=== PATIENT | male | born 2000 | race Two or more races ===

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

== ENCOUNTER 2018-02-07 23:02 | Emergency (ER) | payer MEDICAID ==
--- NOTE | 2018-02-07 23:05 | ER Report ---
History and Physical Time Seen By MD: 23:04 HPI/ROS CHIEF COMPLAINT: feeding tube not working HISTORY OF PRESENT ILLNESS: This is a 17 year old male. He had his Keppra given through the feeding tube, but now not working. Sent by ambulance for further evaluation. Home Meds Reported Medications Sertraline Hcl (SERTRALINE HCL) 25 Mg Tablet, 1 TAB FT QDAY, TAB 02/08/18 Quetiapine Fumarate (QUETIAPINE FUMARATE) 25 Mg Tablet, 12.5 MG FT QDAY 02/08/18 Quetiapine Fumarate (Quetiapine Fumarate ER) 50 Mg Tab.er.24h, 12.2 MG 02/08/18 Potassium Chloride (POTASSIUM CHLORIDE) 20 Meq Packet, 20 MEQ FT QDAY, PACKET 02/08/18 Oxycodone/Acetaminophen (OXYCODONE/ACETAMINOPHEN 5MG/325 MG) 5 Mg/325 Mg Tab, 1 TAB FT Q8H 02/08/18 Eyelid Cleanser Combination #5 (OCUSOFT LID SCRUB) 1 Each Med..pad, 1 EACH TP BID 02/08/18 Hyoscyamine Sulfate (LEVSIN) 0.125 Mg Tablet, 0.125 MG FT BID 02/08/18 Clonazepam (KLONOPIN) 1 Mg Tablet, 1 MG FT BID, #7 TAB 02/08/18 Glycopyrrolate (GLYCOPYRROLATE) 2 Mg Tablet, 2 MG FT TID 02/08/18 Levetiracetam (LEVETIRACETAM) 500 Mg Tablet, 500 MG FT BID 02/07/18 Reviewed Nurses Notes: Yes Constitutional Vital Sign - Last 24 Hours 02/07/18 23:06 Temp 99.1 Pulse 76 Resp 14 B/P (MAP) 98/54 Pulse Ox 95 Physical Exam Abdomen is soft, non-tender. Feeding tube site normal in appearance. Feeding tube flushes easily with some CocaCola and then flushed with sterile water. No problems noted. Medical Decision Making ED Course/Re-evaluation ED Course feeding tube flushes normally. Okay to discharge back to care center. Decision to Disposition Date: Feb 07, 2018 Decision to Disposition Time: 23:10 Depart Departure Latest Vital Signs Vital Signs Date Time Temp Pulse Resp B/P (MAP) Pulse Ox O2 Delivery O2 Flow Rate FiO2 02/07/18 23:06 99.1 76 14 98/54 95 Impression: Primary Impression: Feeding tube dysfunction Condition: Improved Disposition: HOME OR SELF-CARE Additional Instructions: No changes at this time. Problem Qualifiers Primary Impression: Feeding tube dysfunction Encounter type: initial encounter Qualified Codes: T85.598A - Other mechanical complication of other gastrointestinal prosthetic devices, implants and grafts, initial encounter VINCE AMAYA MD Feb 07, 2018 23:05
[2018-02-07 23:06] VITALS: BP 98/54
[2018-02-07] MEDS ORDERED: LEVE500T73 FT (23:55)
[2018-02-08] MEDS ORDERED: SERT25TA90 FT (00:06)
[2018-02-08] MEDS ORDERED: QUET25TA FT (00:06)
[2018-02-08] MEDS ORDERED: CLON-1 FT (00:06)
[2018-02-08] MEDS ORDERED: HYOS-49 FT (00:06)
[2018-02-08] MEDS ORDERED: QUET50TA79 (00:06)
[2018-02-08] MEDS ORDERED: GLYC2TAB15 FT (00:06)
[2018-02-08] MEDS ORDERED: POTA20PA25 FT (00:06)
[2018-02-08] MEDS ORDERED: PER FT (00:06)
[2018-02-08] MEDS ORDERED: EYEL1MED TP (00:06)
== END 2018-02-07 23:30 | disposition home or self-care (01) ==
LOC: ER 23:09
DX: K94.23 Gastrostomy malfunction (principal)
CPT/HCPCS: 99283

== ENCOUNTER → 2018-02-07 | Outpatient (CLI) | payer MEDICAID ==
[~2018-02-07] MED LIST changes: -BARIUM SULFATE 148 GM POWDER ONE; -BARIUM SULFATE 240 ML ORAL SUS (NECTAR) ONE; +CLON-1 FT; +EYEL1MED TP; +GLYC2TAB15 FT; +HYOS-49 FT; +LEVE500T73 FT; +PER FT; +POTA20PA25 FT; +QUET25TA FT; +QUET50TA79; +SERT25TA90 FT
== END ==
LOC: AMB 23:47
PROVIDERS: ATTEND Nurse Practitioner
DX: Z93.1 Gastrostomy status (principal); R63.3 Feeding difficulties; Z74.01 Bed confinement status
CPT/HCPCS: A0425; A0428

== ENCOUNTER → 2018-02-07 | Outpatient (CLI) | payer MEDICAID | LOC: AMB 22:44 | PROVIDERS: ATTEND Nurse Practitioner | DX: Z93.1 Gastrostomy status (principal); R63.3 Feeding difficulties; Z74.01 Bed confinement status | CPT/HCPCS: A0425; A0429 ==

== ENCOUNTER → 2018-02-11 | Outpatient (REF) | payer MEDICAID | LOC: ZZLCC 17:52 | PROVIDERS: ATTEND Family Medicine | DX: S06.9X9D Unspecified intracranial injury with loss of consciousness of unspecified duration, subsequent encounter (principal); I63.9 Cerebral infarction, unspecified; R53.1 Weakness | CPT/HCPCS: 82040; 82247; 82310; 82374; 82435; 82565; 82947; 84075; 84132; 84155; 84295; 84450; 84460; 84520; 85027 ==

== ENCOUNTER 2018-02-18 08:05 | Emergency (ER) | payer MEDICAID ==
[2018-02-18] MEDS ORDERED: NS(*) 0.9% 1000 ML BAG 1,000 ML IV ONE (08:11)
[2018-02-18] MEDS ORDERED: ONDANSETRON 4 MG/2 ML VIAL IVP ONE (08:15)
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
[2018-02-18] MEDS ORDERED: DIATRIZOATE MEGL/DIATRIZOA SOD 367 MG/ML SOLN ONE (08:29)
[2018-02-18 09:01] LABS: PLATELET COUNT, AUTOMATED 118 K/uL (150-450)
[2018-02-18 09:10] LABS: INR 1.05
--- NOTE | 2018-02-18 09:48 | RADIOLOGY IMAGING REPORT ---
FACILITY: [facility] - [place] PATIENT NAME: Todd Beltran : 2000 MR: [id number] V: [id number] EXAM DATE: ORDERING PHYSICIAN: SHAUNA JOE TECHNOLOGIST: Location: [facility] Patient: Todd Beltran : 2000 Visit/Account:[id number] Date of Sevice: 02/18/2018 Exam type: FLUORO NG TUBE PLACEMENT History: Gastrografin through G-tube for confirmation of placement Comparison: None. Findings: 60 mL of a Gastrografin suspension was instilled through the patient's gastrostomy tube gastrostomy t ube with appears to be along the greater curvature of the gastric body. The Gastrografin entered the stomach and passed into the duodenum without evidence of obstruction. The balloon from the G-tube a ppears to be tethering the greater curvature inferiorly. The fluoroscopy dose area product was 147.7 2 micro-Jarvis per meter squared IMPRESSION: 1. The G-tube appears to be located along the greater curvature the stomach which is tethering the g reater curvature inferiorly although there is no extraluminal extravasation of the Gastrografin which flowed freely into the stomach and proximal duodenum Report Dictated By: Juana Biswas MD at 02/18/2018 9:40 AM Report E-Signed By: Juana Biswas MD at 02/18/2018 9:44 AM WSN:[email or web address]
[2018-02-18 10:30] VITALS: BP 89/42
== END 2018-02-18 11:01 | disposition home or self-care (01) ==
LOC: ER 08:14
DX: K94.23 Gastrostomy malfunction (principal)
CPT/HCPCS: 49465; 83690; 85025; 85610; 85730; 96361; 96374; 99284; J2405; J7030; 74340; 82040; 82247; 82310; 82374; 82435; 82565; 82947; 84075; 84132; 84155; 84295; 84450; 84460; 84520

== ENCOUNTER → 2018-02-18 | Outpatient (CLI) | payer MEDICAID | LOC: AMB 10:58 | PROVIDERS: ATTEND Nurse Practitioner | DX: R53.1 Weakness (principal); S06.309A Unspecified focal traumatic brain injury with loss of consciousness of unspecified duration, initial encounter; V49.9XXA Car occupant (driver) (passenger) injured in unspecified traffic accident, initial encounter; Z74.01 Bed confinement status | CPT/HCPCS: A0425; A0428 ==

== ENCOUNTER → 2018-02-18 | Outpatient (CLI) | payer MEDICAID | LOC: AMB 07:50 | PROVIDERS: ATTEND Nurse Practitioner | DX: R50.9 Fever, unspecified (principal); R11.10 Vomiting, unspecified; Z74.01 Bed confinement status; S06.309A Unspecified focal traumatic brain injury with loss of consciousness of unspecified duration, initial encounter; V49.60XA Unspecified car occupant injured in collision with unspecified motor vehicles in traffic accident, initial encounter | CPT/HCPCS: A0425; A0429 ==

== ENCOUNTER 2018-03-11 09:15 | Inpatient (IN) | payer MEDICAID ==
[~2018-03-11 09:15] MED LIST changes: -AMOX-559 FT; -BACL-51 FT; -BISA10SU62 RC; -DANT25CA PO; -ONDA4TAB PO; -POLY17PO25 FT
[2018-03-11] MEDS ORDERED: BISA10SU62 RC (09:34)
[2018-03-11] MEDS ORDERED: POLY17PO25 FT (09:34)
[2018-03-11] MEDS ORDERED: DANT25CA PO (09:34)
[2018-03-11] MEDS ORDERED: BACL-51 FT (09:34)
[2018-03-11] MEDS ORDERED: NS(*) 0.9% 1000 ML BAG 1,000 ML IV ONE (09:35)
[2018-03-11] MEDS ORDERED: ONDANSETRON 4 MG/2 ML VIAL IVP ONE (09:35)
[2018-03-11 09:42] LABS: PLATELET COUNT, AUTOMATED 156 K/uL (150-450)
[2018-03-11] MEDS ORDERED: DIATRIZOATE MEGL/DIATRIZOA SOD 367 MG/ML SOLN ONE (09:44)
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
--- NOTE | 2018-03-11 10:56 | RADIOLOGY IMAGING REPORT ---
[place]AC[place] [facility] [place] NAME: Todd Beltran : 2000 MR: [id number] V: [id number] EXAM DATE: [id number] ORDERING PHYSICIAN: SHAUNA JOE TECHNOLOGIST: Location: [facility] - [place], [place] Patient: Todd Beltran : 2000 Visit/Account:[id number] Date of Sevice: 03/11/2018 ABDOMEN/PELVIS W/O CONTRAST HISTORY: Abdominal pain. Evaluate for gastric outlet obstruction TECHNIQUE: Axial images were obtained through the abdomen and pelvis without intravenous contrast . Dilute Gastrografin administered prior to the exam. One of the following dose optimization technique s was utilized in the performance of this exam: automated exposure control; adjustment of the mA and/ or kv according to patient size; or use of iterative reconstruction technique. Specific details can b e referenced in the facility's radiology CT exam operational policy. CONTRAST: None COMPARISON: None. FINDINGS: Visualized lung bases: Bilateral perihilar groundglass-reticular opacities. Hepatobiliary: Negative. Spleen: Negative. Adrenals: Negative. Pancreas: Negative. Kidneys/ureters/bladder: Negative. Bowel/peritoneum/mesentery: Percutaneous gastrostomy tube. Dilute Gastrografin fills the stomach wi th a small amount of contrast seen within the duodenum and proximal jejunum. No evidence of small paris wel obstruction. No free air. No contrast extravasation. Large amount of stool within the rectosig moid colon with a rectal stool ball measuring 9.7 x 9.1 x 8.8 cm. Vessels: Negative. Lymph nodes: Negative. Pelvic genitourinary: Negative. Bones/body wall: Negative. Other findings: None significant IMPRESSION: 1. Dilute Gastrografin within the stomach with a small amount of contrast seen within duodenum and j ejunum. No free air or contrast extravasation. 2. Large amount of stool within the rectosigmoid colon without obstructive features. 3. Moderate bilateral perihilar groundglass-reticular opacities which may be infectious/inflammatory or aspiration. Report Dictated By: Matthew Yarbrough MD at 03/11/2018 10:44 AM Report E-Signed By: Matthew Yarbrough MD at 03/11/2018 10:51 AM WSN:[id number]
[2018-03-11] MEDS ORDERED: LEVOFLOXACIN/D5W*500 MG/100 ML 100 ML IVPB ONE (11:00)
--- NOTE | 2018-03-11 11:38 | RADIOLOGY IMAGING REPORT ---
FACILITY: [facility] - [place] PATIENT NAME: Todd Beltran : 2000 MR: [id number] V: [id number] EXAM DATE: ORDERING PHYSICIAN: SHAUNA JOE TECHNOLOGIST: Location: [facility] - [place] Patient: Todd Beltran : 2000 Visit/Account:[id number] Date of Sevice: 03/11/2018 CHEST W/O CONTRAST HISTORY: aspiration TECHNIQUE: CT chest without intravenous contrast. One of the following dose optimization techniques was utilized in the performance of this exam: Autom ated exposure control; adjustment of the mA and/or kV according to the patient's size; or use of an i terative reconstruction technique. Specific details can be referenced in the facility's radiology C T exam operational policy. CONTRAST: None. COMPARISON: None. FINDINGS: Heart/vessels: Note is made of apparent common carotid bypass grafts which are not well assessed wit hout IV contrast. Otherwise negative. Mediastinum: Negative. Lymph nodes: Borderline prominent nonspecific right paratracheal lymph node measuring up to 9 mm in short axis. No pathologically enlarged. Lungs/pleura: Extensive nodular groundglass opacities throughout the lungs, right greater than left. There is a small right tracheal diverticulum.. Cannot accurately assess for small pulmonary micronod ules secondary to respiratory motion artifact. Visualized upper abdomen: Negative. Bones/soft tissues: Negative. IMPRESSION: 1. Extensive nodular groundglass opacities throughout the lungs, right greater than left, likely infe ctious/inflammatory in etiology. 2. Additional incidental/chronic findings, as above. Report Dictated By: Florentino No MD at 03/11/2018 11:31 AM Report E-Signed By: Florentino No MD at 03/11/2018 11:35 AM WSN:[id number]
[2018-03-11 12:28] VITALS: BP 95/52
[2018-03-11] MEDS ORDERED: NS(*) 0.9% 1000 ML BAG 1,000 ML IV PRN ×2 (12:45→12:50)
[2018-03-11] MEDS ORDERED: ONDANSETRON 4 MG/2 ML VIAL IVP PRN (12:45)
[2018-03-11] MEDS ORDERED: PROMETHAZINE 25 MG/ML 1 ML AMP IVP PRN (12:45)
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
[2018-03-11] MEDS: AMPICILLIN/SULBACT (*) 3 GM VL 3 GM in NS(*) 0.9% 100 ML BAG 100 ML IVPB SCH ×2 (14:02→20:18)
[2018-03-11 20:20] VITALS: BP 101/55
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
[2018-03-11] MEDS: levETIRAcetam(*)500 MG/5 ML VI 500 MG in NS(*) 0.9% 100 ML BAG 100 ML IV SCH (21:29)
[2018-03-11 22:28] VITALS: BP 97/67
[2018-03-11] MEDS: NS(*) 0.9% 1000 ML BAG 1,000 ML IV PRN (23:54)
[2018-03-12] MEDS: AMPICILLIN/SULBACT (*) 3 GM VL 3 GM in NS(*) 0.9% 100 ML BAG 100 ML IVPB SCH ×4 (02:21→21:21)
[2018-03-12 02:27] VITALS: BP 111/52
[2018-03-12 05:56] LABS: PLATELET COUNT, AUTOMATED 104 K/uL (150-450)
[2018-03-12 07:35] VITALS: BP 83/45
[2018-03-12] MEDS: levETIRAcetam(*)500 MG/5 ML VI 500 MG in NS(*) 0.9% 100 ML BAG 100 ML IV SCH (09:25)
[2018-03-12] MEDS ORDERED: ACETAMINOPHEN 160 MG/5 ML UDC FT PRN (10:10)
[2018-03-12] MEDS: NS(*) 0.9% 1000 ML BAG 1,000 ML IV PRN ×2 (10:53→16:38)
[2018-03-12] MEDS ORDERED: ONDA4TAB PO (12:01)
[2018-03-12] MEDS ORDERED: HYOSCYAMINE 0.125 MG/ML FT SCH (12:25)
[2018-03-12] MEDS ORDERED: BISACODYL 10 MG SUPP PR PRN (12:25)
[2018-03-12] MEDS: POLYETHYLENE GLYCOL 17 GM PKT FT SCH (12:53)
[2018-03-12] MEDS: SERTRALINE HCL 50 MG TAB FT SCH (12:53)
[2018-03-12] MEDS: clonazePAM 1 MG TAB FT SCH ×2 (12:53→21:23)
[2018-03-12] MEDS: BACLOFEN 10 MG TAB FT SCH ×3 (12:53→21:23)
[2018-03-12] MEDS: HYOSCYAMINE 0.125 MG/ML FT SCH ×2 (12:55→21:24)
[2018-03-12 12:57] VITALS: BP 97/53
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
[2018-03-12 20:05] VITALS: BP 103/66
[2018-03-12] MEDS: levETIRAcetam 500 MG TAB FT SCH (21:23)
[2018-03-12] MEDS: QUEtiapine FUM 25 MG TAB FT SCH (21:23)
[2018-03-13 00:30] VITALS: BP 91/50
[2018-03-13] MEDS: NS(*) 0.9% 1000 ML BAG 1,000 ML IV PRN ×2 (01:25→10:54)
[2018-03-13] MEDS: AMPICILLIN/SULBACT (*) 3 GM VL 3 GM in NS(*) 0.9% 100 ML BAG 100 ML IVPB SCH ×4 (01:43→20:39)
[2018-03-13] MEDS ORDERED: MORPHINE 2 MG/ML SYR IVP PRN (04:30)
[2018-03-13] MEDS ORDERED: ACETAMINOPHEN(*)1000 MG/100 ML 100 ML IVPB PRN (04:30)
[2018-03-13 07:02] VITALS: BP 106/72
--- NOTE | 2018-03-13 09:03 | Miscellaneous Provider Note ---
Miscellaneous Provider Note Note Patient's feeding tube is occluded and cannot be used for feedings or even flushed. I swapped it out and placed a 20 [place] balloon tip feeding tube. He tolerated without problems. Tube feedings can be resumed at hospitalist discretion. NITHIN ABARCA MD Mar 13, 2018 09:03
[2018-03-13] MEDS: SERTRALINE HCL 50 MG TAB FT SCH (09:25)
[2018-03-13] MEDS: BACLOFEN 10 MG TAB FT SCH ×4 (09:25→20:39)
[2018-03-13] MEDS: clonazePAM 1 MG TAB FT SCH ×2 (09:25→20:39)
[2018-03-13] MEDS: levETIRAcetam 500 MG TAB FT SCH ×2 (09:25→20:40)
[2018-03-13] MEDS: HYOSCYAMINE 0.125 MG/ML FT SCH ×2 (09:26→20:40)
[2018-03-13] MEDS: POLYETHYLENE GLYCOL 17 GM PKT FT SCH (09:26)
[2018-03-13 10:56] VITALS: BP 85/52
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
[2018-03-13] MEDS: ENOXAPARIN 40 MG/0.4ML SYR SC SCH (14:13)
[2018-03-13] MEDS: ACETAMINOPHEN 160 MG/5 ML UDC FT PRN (14:24)
[2018-03-13] MEDS: MORPHINE 2 MG/ML SYR IVP PRN ×3 (15:54→22:51)
[2018-03-13 19:42] VITALS: BP 110/78
[2018-03-13] MEDS: QUEtiapine FUM 25 MG TAB FT SCH (20:40)
[2018-03-14] MEDS: ACETAMINOPHEN 160 MG/5 ML UDC FT PRN ×2 (00:14→07:46)
[2018-03-14] MEDS: AMPICILLIN/SULBACT (*) 3 GM VL 3 GM in NS(*) 0.9% 100 ML BAG 100 ML IVPB SCH ×3 (02:51→13:19)
[2018-03-14] MEDS: NS(*) 0.9% 1000 ML BAG 1,000 ML IV PRN (02:53)
[2018-03-14] MEDS: MORPHINE 2 MG/ML SYR IVP PRN (06:24)
[2018-03-14 06:26] LABS: PLATELET COUNT, AUTOMATED 107 K/uL (150-450)
[2018-03-14 07:25] VITALS: BP 119/86
[2018-03-14] MEDS ORDERED: AMOX-559 FT (09:10)
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
[2018-03-14] MEDS: levETIRAcetam 500 MG TAB FT SCH (09:42)
[2018-03-14] MEDS: ENOXAPARIN 40 MG/0.4ML SYR SC SCH (09:43)
[2018-03-14] MEDS: BACLOFEN 10 MG TAB FT SCH ×2 (09:43→12:47)
[2018-03-14] MEDS: clonazePAM 1 MG TAB FT SCH (09:43)
[2018-03-14] MEDS: SERTRALINE HCL 50 MG TAB FT SCH (09:43)
[2018-03-14] MEDS: POLYETHYLENE GLYCOL 17 GM PKT FT SCH (09:43)
[2018-03-14] MEDS: HYOSCYAMINE 0.125 MG/ML FT SCH (09:44)
== END 2018-03-14 14:35 | DRG 177 ==
LOC: ER 09:39 → MED 11:25
PROVIDERS: ADMIT Internal Medicine; ATTEND Internal Medicine
PROC: 0D20XUZ Change Feeding Device in Upper Intestinal Tract, External Approach (ICD-10-PCS; principal; 2018-03-11)
DX: J69.0 Pneumonitis due to inhalation of food and vomit (principal); G82.50 Quadriplegia, unspecified; K94.23 Gastrostomy malfunction; I95.9 Hypotension, unspecified; Z87.820 Personal history of traumatic brain injury; Z99.3 Dependence on wheelchair
CPT/HCPCS: 36415; 43760; 71250; 74176; 82040; 82247; 82310; 82374; 82435; 82565; 82947; 84075; 84132; 84155; 84295; 84450; 84460; 84520; 85025; 87040; 96361; 96365; 99284; J0131; J0295; J1650; J1953; J1956; J2270; J2405; J2550; J7030; J7050

== ENCOUNTER → 2018-03-11 | Outpatient (CLI) | payer MEDICAID ==
[~2018-03-11] MED LIST changes: +AMOX-559 FT; +BACL-51 FT; +BISA10SU62 RC; +DANT25CA PO; +ONDA4TAB PO; +POLY17PO25 FT
== END ==
LOC: AMB 08:57
PROVIDERS: ATTEND Nurse Practitioner
DX: R11.10 Vomiting, unspecified (principal); R00.0 Tachycardia, unspecified; R09.02 Hypoxemia; R41.0 Disorientation, unspecified
CPT/HCPCS: A0425; A0427

== ENCOUNTER 2018-04-10 17:25 | Inpatient (IN) | payer MEDICAID ==
[~2018-04-10 17:25] MED LIST changes: -AMOX1TAB9 PO; -LEVE500S9 PO; -METO5SOL2 FT; -METO5TAB75 PO
[2018-04-10] MEDS ORDERED: NS(*) 0.9% 1000 ML BAG 1,000 ML IV ONE (17:43)
--- NOTE | 2018-04-10 17:43 | ER Report ---
History and Physical Time Seen By MD: 17:43 Hx. of Stated Complaint: vomiting 12x today, feverish, pt is nonverbal (baseline) and paralyzed HPI/ROS CHIEF COMPLAINT: Vomiting 12, cough HISTORY OF PRESENT ILLNESS: 18-year-old male patient persisted emergency room with complaint of vomiting 12, cough. Patient is a resident of [facility]. He had several bouts of vomiting this morning before lunch. He had about 2 hours after lunch where he did not have any vomiting. After that he did have several more bouts of vomiting. They did note that he did have a cough couple of times. They state that due to the vomiting they tried to get hold of his primary care provider, however they were unable to and referred him to the emergency room for further evaluation. I did give him some Reglan which seemed to help for short. Time. REVIEW OF SYSTEMS: Respiratory: As noted above Cardiovascular: No chest pain, no palpitations. Gastrointestinal: As noted above Musculoskeletal: No back pain. Allergies: Coded Allergies: No Known Drug Allergies (Unverified , 02/18/18) Home Meds Reported Medications Metoclopramide Hcl (METOCLOPRAMIDE HCL) 5 Mg Tablet, 5 MG PO 04/10/18 Ondansetron (ZOFRAN ODT) 4 Mg Tab.rapdis, 4 MG PO Q8H PRN for NAUSEA, TAB.JAIDA 03/12/18 Baclofen (BACLOFEN) 20 Mg Tablet, 20 MG FT QID, #15 TAB 03/11/18 Polyethylene Glycol 3350 (MIRALAX) 17 Gm Powd.pack, 17 GM FT DAILY, PKT 03/11/18 Bisacodyl (BISACODYL) 10 Mg Supp.rect, 10 MG RC DAILY, SUPP.RECT 03/11/18 Sertraline Hcl (SERTRALINE HCL) 25 Mg Tablet, 1 TAB FT QDAY, TAB 02/08/18 Quetiapine Fumarate (QUETIAPINE FUMARATE) 25 Mg Tablet, 12.5 MG FT QDAY 02/08/18 Potassium Chloride (POTASSIUM CHLORIDE) 20 Meq Packet, 20 MEQ FT QDAY, PACKET 02/08/18 Oxycodone/Acetaminophen (OXYCODONE/ACETAMINOPHEN 5MG/325 MG) 5 Mg/325 Mg Tab, 1 TAB FT Q8H 02/08/18 Eyelid Cleanser Combination #5 (OCUSOFT LID SCRUB) 1 Each Med..pad, 1 EACH TP BID 02/08/18 Hyoscyamine Sulfate (LEVSIN) 0.125 Mg Tablet, 0.125 MG FT BID 02/08/18 Clonazepam (KLONOPIN) 1 Mg Tablet, 1 MG FT BID, #7 TAB 02/08/18 Glycopyrrolate (GLYCOPYRROLATE) 2 Mg Tablet, 2 MG FT TID 02/08/18 Levetiracetam (LEVETIRACETAM) 500 Mg Tablet, 500 MG FT BID 02/07/18 Discontinued Reported Medications Dantrolene Sodium (DANTROLENE SODIUM) 25 Mg Capsule, 25 MG PO BID, CAPSULE 03/11/18 Discontinued Scripts Amoxicillin/Pot Clav 875-125 Mg Tab (AUGMENTIN 875-125 TABLET) 1 Each Tablet, 1 TAB FT Q12H, #6 TAB Prov:NITHIN LEMUS DO 03/14/18 Past Medical/Surgical History Patient has a past medical history of TBI, contractures, quadriplegia. Patient has a surgical history of PEG tube. Reviewed Nurses Notes: Yes Hx Smoking: No Hx Substance Use Disorder: No Hx Alcohol Use: No Constitutional Vital Sign - Last 24 Hours 04/10/18 04/10/18 17:29 18:05 Temp 101.3 Pulse 100 Resp 20 B/P (MAP) 107/64 Pulse Ox 86 O2 Delivery Room Air O2 Flow Rate 3.0 Physical Exam General Appearance: The patient is alert, has no immediate need for airway protection and no current signs of toxicity. Respiratory: Chest is non tender, lungs are clear to auscultation. Cardiac: regular rate and rhythm Gastrointestinal: Abdomen is distended and non tender, no masses, bowel sounds normal. Musculoskeletal: Neck: Neck is supple and non tender. Extremities have full range of motion and are non tender. Skin: No rashes or lesions. DIFFERENTIAL DIAGNOSIS: After history and physical exam differential diagnosis was considered for nausea and vomiting including but not limited to gastroenteritis, gastritis, appendicitis, and medication side effect. Medical Decision Making Data Points Result Diagram: 04/10/18 1804 04/10/18 180 Laboratory Hematology Test 04/10/18 17:36 04/10/18 18:04 04/10/18 18:51 Influenza Virus Type A (PCR) Negative (NEGATIVE) Influenza Virus Type B (PCR) Negative (NEGATIVE) Red Blood Count 6.00 M/uL (4.00-5.60) Mean Corpuscular Volume 88.3 fL (80.0-96.0) Mean Corpuscular Hemoglobin 30.1 pg (26.0-33.0) Mean Corpuscular Hemoglobin Concent 34.0 g/dL (32.0-36.0) Red Cell Distribution Width 14.0 % (11.5-14.5) Mean Platelet Volume 11.6 fL (7.2-11.1) Neutrophils (%) (Auto) 91.5 % (39.4-72.5) Lymphocytes (%) (Auto) 2.2 % (17.6-49.6) Monocytes (%) (Auto) 6.0 % (4.1-12.4) Eosinophils (%) (Auto) 0.2 % (0.4-6.7) Basophils (%) (Auto) 0.1 % (0.3-1.4) Nucleated RBC Relative Count (auto) 0.0 /100WBC Neutrophils # (Auto) 15.9 K/uL (2.0-7.4) Lymphocytes # (Auto) 0.4 K/uL (1.3-3.6) Monocytes # (Auto) 1.0 K/uL (0.3-1.0) Eosinophils # (Auto) 0.0 K/uL (0.0-0.5) Basophils # (Auto) 0.0 K/uL (0.0-0.1) Nucleated RBC Absolute Count (auto) 0.00 K/uL Sodium Level 139 mmol/L (137-145) Potassium Level 3.9 mmol/L (3.5-5.0) Chloride Level 96 mmol/L (98-107) Carbon Dioxide Level 27 mmol/L (22-30) Blood Urea Nitrogen 18 mg/dl (9-21) Creatinine 0.90 mg/dl (0.66-1.25) Glomerular Filtration Rate Calc > 60.0 Random Glucose 140 mg/dl (75-110) Calcium Level 9.5 mg/dl (8.4-10.2) Total Bilirubin 1.1 mg/dl (0.2-1.3) Aspartate Amino Transf (AST/SGOT) 54 U/L (0-35) Alanine Aminotransferase (ALT/SGPT) 142 U/L (0-56) Alkaline Phosphatase 149 U/L (0-126) Total Protein 8.3 g/dl (6.3-8.2) Albumin 4.5 g/dl (3.5-5.0) Amylase Level 73 U/L (0-110) Lipase 19 U/L (23-300) Urine Color Myriam Urine Clarity Slightly-cloudy Urine pH 6.0 pH (4.8-9.5) Urine Specific Donaldson 1.023 Urine Protein Negative mg/dL (NEGATIVE) Urine Glucose (UA) Negative mg/dL (NEGATIVE) Urine Ketones Negative mg/dL (NEGATIVE) Urine Blood Negative (NEGATIVE) Urine Nitrite Negative (NEGATIVE) Urine Bilirubin Negative (NEGATIVE) Urine Urobilinogen 2.0 mg/dL (0.2-1.9) Urine Leukocyte Esterase Negative (NEGATIVE) Urine RBC <1 /HPF (0-2/HPF) Urine WBC 3 /HPF (0-5/HPF) Urine Squamous Epithelial Cells None /LPF (NONE-FEW) Urine Bacteria Negative /HPF (NONE-FEW) Urine Mucus Few /HPF (NONE-FEW) Chemistry Test 04/10/18 17:36 04/10/18 18:04 04/10/18 18:51 Influenza Virus Type A (PCR) Negative (NEGATIVE) Influenza Virus Type B (PCR) Negative (NEGATIVE) White Blood Count 17.3 k/uL (4.5-11.0) Red Blood Count 6.00 M/uL (4.00-5.60) Hemoglobin 18.0 g/dL (14.0-18.0) Hematocrit 53.0 % (42.0-52.0) Mean Corpuscular Volume 88.3 fL (80.0-96.0) Mean Corpuscular Hemoglobin 30.1 pg (26.0-33.0) Mean Corpuscular Hemoglobin Concent 34.0 g/dL (32.0-36.0) Red Cell Distribution Width 14.0 % (11.5-14.5) Platelet Count 116 K/uL (150-450) Mean Platelet Volume 11.6 fL (7.2-11.1) Neutrophils (%) (Auto) 91.5 % (39.4-72.5) Lymphocytes (%) (Auto) 2.2 % (17.6-49.6) Monocytes (%) (Auto) 6.0 % (4.1-12.4) Eosinophils (%) (Auto) 0.2 % (0.4-6.7) Basophils (%) (Auto) 0.1 % (0.3-1.4) Nucleated RBC Relative Count (auto) 0.0 /100WBC Neutrophils # (Auto) 15.9 K/uL (2.0-7.4) Lymphocytes # (Auto) 0.4 K/uL (1.3-3.6) Monocytes # (Auto) 1.0 K/uL (0.3-1.0) Eosinophils # (Auto) 0.0 K/uL (0.0-0.5) Basophils # (Auto) 0.0 K/uL (0.0-0.1) Nucleated RBC Absolute Count (auto) 0.00 K/uL Glomerular Filtration Rate Calc > 60.0 Calcium Level 9.5 mg/dl (8.4-10.2) Total Bilirubin 1.1 mg/dl (0.2-1.3) Aspartate Amino Transf (AST/SGOT) 54 U/L (0-35) Alanine Aminotransferase (ALT/SGPT) 142 U/L (0-56) Alkaline Phosphatase 149 U/L (0-126) Total Protein 8.3 g/dl (6.3-8.2) Albumin 4.5 g/dl (3.5-5.0) Amylase Level 73 U/L (0-110) Lipase 19 U/L (23-300) Urine Color Myriam Urine Clarity Slightly-cloudy Urine pH 6.0 pH (4.8-9.5) Urine Specific Donaldson 1.023 Urine Protein Negative mg/dL (NEGATIVE) Urine Glucose (UA) Negative mg/dL (NEGATIVE) Urine Ketones Negative mg/dL (NEGATIVE) Urine Blood Negative (NEGATIVE) Urine Nitrite Negative (NEGATIVE) Urine Bilirubin Negative (NEGATIVE) Urine Urobilinogen 2.0 mg/dL (0.2-1.9) Urine Leukocyte Esterase Negative (NEGATIVE) Urine RBC <1 /HPF (0-2/HPF) Urine WBC 3 /HPF (0-5/HPF) Urine Squamous Epithelial Cells None /LPF (NONE-FEW) Urine Bacteria Negative /HPF (NONE-FEW) Urine Mucus Few /HPF (NONE-FEW) Urinalysis Test 04/10/18 18:51 Urine Color Myriam Urine Clarity Slightly-cloudy Urine pH 6.0 pH (4.8-9.5) Urine Specific Donaldson 1.023 Urine Protein Negative mg/dL (NEGATIVE) Urine Glucose (UA) Negative mg/dL (NEGATIVE) Urine Ketones Negative mg/dL (NEGATIVE) Urine Blood Negative (NEGATIVE) Urine Nitrite Negative (NEGATIVE) Urine Bilirubin Negative (NEGATIVE) Urine Urobilinogen 2.0 mg/dL (0.2-1.9) Urine Leukocyte Esterase Negative (NEGATIVE) Urine RBC <1 /HPF (0-2/HPF) Urine WBC 3 /HPF (0-5/HPF) Urine Squamous Epithelial Cells None /LPF (NONE-FEW) Urine Bacteria Negative /HPF (NONE-FEW) Urine Mucus Few /HPF (NONE-FEW) EKG/Imaging Imaging EXAMINATION: Portable AP Chest HISTORY: Vomiting. Nausea. COMPARISON: CT chest 03/11/2018. FINDINGS: There are increased perihilar interstitial markings bilaterally with peribronchial thickening. There is some mild patchy airspace disease in the mid and lower lungs. Allowing for differences in modality this is likely improved from the prior chest CT. Mild patchy parenchymal opacities are also noted along the imaged lower lungs on the abdominal CT performed today. No confluent consolidation. No pleural effusion or pneumothorax. Normal cardiomediastinal silhouette. Sternotomy. Surgical clips in the neck and upper chest. No acute osseous findings. IMPRESSION: Interstitial prominence throughout both lungs. Mild patchy airspace opacity in the lower lungs may represent multifocal pneumonitis. Report Dictated By: Ministerio Varma MD at 04/10/2018 8:50 PM Report E-Signed By: Ministerio Varma MD at 04/10/2018 8:53 PM EXAMINATION: CT abdomen and pelvis with IV contrast HISTORY: Vomiting. TECHNIQUE: Axial CT images of the abdomen and pelvis were obtained with IV contrast, with coronal and sagittal 2D reconstructed images. One of the following dose optimization techniques was utilized in the per formance of this exam: Automated exposure control; adjustment of the mA and/or kV according to the patient's size; or use of an iterative reconstruction technique. Specific details can be referenced in the facility's radiology CT exam operational policy. Contrast: 75 mL of IV Isovue-370. COMPARISON: 03/11/2018. FINDINGS: Image quality is partially degraded by patient motion artifact. Liver: Negative. Gallbladder and bile ducts: Negative. Spleen: Negative. Pancreas: Negative. Adrenal glands: Negative. Kidneys: Negative. No hydronephrosis or urinary calculi. Bowel and peritoneum: There is a large volume of stool in the sigmoid colon and rectum, with a small volume of upstream colonic stool. The rectal vault is distended up to 9 cm in diameter. This appears similar to the prior exam. Small bowel loops are normal in caliber. No free fluid or free intraperitoneal air. Percutaneous gastrostomy tube in place. The visualized appendix is unremarkable. Pelvic structures: The urinary bladder is decompressed, with a Momin catheter in place. Lymph node assessment: Negative. Vessels: Negative. Musculoskeletal: Negative. Body wall: Negative. Lung bases: There are patchy airspace opacities in the imaged lower lungs, suspicious for multifocal pneumonitis. This could be due to aspiration. Similar pulmonary changes were present on the prior CT. IMPRESSION: 1. Large volume of stool in the sigmoid colon and rectum suggesting constipation. The rectal vault is distended up to 9 cm. Small bowel loops are normal in caliber. 2. Percutaneous gastrostomy tube and Momin catheter in place. 3. No other acute intra-abdominal findings. 4. There is patchy airspace disease in the imaged lower lungs, suspicious for multifocal pneumonitis. This could be due to aspiration. Report Dictated By: Ministerio Varma MD at 04/10/2018 8:37 PM Report E-Signed By: Ministerio Varma MD at 04/10/2018 8:42 PM ED Course/Re-evaluation ED Course Patient was admitted to an exam room, history and physical were obtained. Differential diagnoses were considered. On examination lungs are clear, heart was regular, abdomen was distended and nontender. Patient did have a fever on arrival to the emergency room. As result of that blood cultures were obtained, and influenza screen was done. Infant screen was negative. Patient did have an elevated white count of 17,000 with a left shift. Patient did have elevated liver enzymes of ALT and alkaline phosphatase. CT scan of the abdomen and pelvis did show significant stool burden with dilation of the distal: Measuring approximately 9 cm. I believe that constipation is likely the cause of his vomiting. Patient did have infiltrates noted in bilateral bases of the lungs on the CT scan. Chest x-ray was done proximal the same time and they did note that he did have some infiltrates which could be consistent with a multilobar pneumonia consistent with aspiration pneumonia. I suspect the vomiting is likely the underlying cause of that as well. He just been admitted to the hospital recently for pneumonia. He is treated with Unasyn at that time. I did discuss the case with Dr. Macias, hospitalist, who agreed to accept the patient for admission. Urinalysis was ordered which was negative and a culture was performed on that. Decision to Disposition Date: Apr 10, 2018 Decision to Disposition Time: 22:16 Depart Departure Latest Vital Signs Vital Signs Date Time Temp Pulse Resp B/P (MAP) Pulse Ox O2 Delivery O2 Flow Rate FiO2 04/10/18 18:05 3.0 04/10/18 17:29 101.3 100 20 107/64 86 Room Air Impression: Primary Impression: Aspiration pneumonia Additional Impression: Constipation Condition: Stable Disposition: HOME OR SELF-CARE Problem Qualifiers Primary Impression: Aspiration pneumonia Aspiration pneumonia type: unspecified Laterality: bilateral Lung location: lower lobe of lung Qualified Codes: J69.0 - Pneumonitis due to inhalation of food and vomit Additional Impression: Constipation Constipation type: unspecified constipation type Qualified Codes: K59.00 - Constipation, unspecified MARIAJOSE GONGORA Apr 10, 2018 17:43
[2018-04-10 18:10] LABS: PLATELET COUNT, AUTOMATED 116 K/uL (150-450)
[2018-04-10] MEDS ORDERED: METO5TAB75 PO (19:05)
[2018-04-10] MEDS ORDERED: IOPAMIDOL 76% 75 ML INFUS BTL 75 ML ONE (19:39)
--- NOTE | 2018-04-10 20:46 | RADIOLOGY IMAGING REPORT ---
FACILITY: [facility] PATIENT NAME: Todd Beltran : 2000 MR: [id number] V: [id number] EXAM DATE: ORDERING PHYSICIAN: MARIAJOSE GONGORA TECHNOLOGIST: Location: [facility] Patient: Todd Beltran : 2000 Visit/Account:[id number] Date of Sevice: 04/10/2018 EXAMINATION: CT abdomen and pelvis with IV contrast HISTORY: Vomiting. TECHNIQUE: Axial CT images of the abdomen and pelvis were obtained with IV contrast, with coronal a nd sagittal 2D reconstructed images. One of the following dose optimization techniques was utilized in the performance of this exam: Autom ated exposure control; adjustment of the mA and/or kV according to the patient's size; or use of an i terative reconstruction technique. Specific details can be referenced in the facility's radiology C T exam operational policy. Contrast: 75 mL of IV Isovue-370. COMPARISON: 03/11/2018. FINDINGS: Image quality is partially degraded by patient motion artifact. Liver: Negative. Gallbladder and bile ducts: Negative. Spleen: Negative. Pancreas: Negative. Adrenal glands: Negative. Kidneys: Negative. No hydronephrosis or urinary calculi. Bowel and peritoneum: There is a large volume of stool in the sigmoid colon and rectum, with a small volume of upstream colonic stool. The rectal vault is distended up to 9 cm in diameter. This appears similar to the prior exam. Small bowel loops are normal in caliber. No free fluid or free intraperit cornejo air. Percutaneous gastrostomy tube in place. The visualized appendix is unremarkable. Pelvic structures: The urinary bladder is decompressed, with a Momin catheter in place. Lymph node assessment: Negative. Vessels: Negative. Musculoskeletal: Negative. Body wall: Negative. Lung bases: There are patchy airspace opacities in the imaged lower lungs, suspicious for multifocal pneumonitis. This could be due to aspiration. Similar pulmonary changes were present on the prior CT . IMPRESSION: 1. Large volume of stool in the sigmoid colon and rectum suggesting constipation. The rectal vault is distended up to 9 cm. Small bowel loops are normal in caliber. 2. Percutaneous gastrostomy tube and Momin catheter in place. 3. No other acute intra-abdominal findings. 4. There is patchy airspace disease in the imaged lower lungs, suspicious for multifocal pneumonitis. This could be due to aspiration. Report Dictated By: Ministerio Varma MD at 04/10/2018 8:37 PM Report E-Signed By: Ministerio Varma MD at 04/10/2018 8:42 PM WSN:[id number]
--- NOTE | 2018-04-10 20:56 | RADIOLOGY IMAGING REPORT ---
FACILITY: [facility] [place] PATIENT NAME: Todd Beltran : 2000 MR: [id number] V: [id number] EXAM DATE: ORDERING PHYSICIAN: MARIAJOSE GONGORA TECHNOLOGIST: Location: [facility] Patient: Todd Beltran : 2000 Visit/Account:[id number] Date of Sevice: 04/10/2018 EXAMINATION: Portable AP Chest HISTORY: Vomiting. Nausea. COMPARISON: CT chest 03/11/2018. FINDINGS: There are increased perihilar interstitial markings bilaterally with peribronchial thickening. There is some mild patchy airspace disease in the mid and lower lungs. Allowing for differences in modality this is likely improved from the prior chest CT. Mild patchy parenchymal opacities are also noted al garo the imaged lower lungs on the abdominal CT performed today. No confluent consolidation. No pleural effusion or pneumothorax. Normal cardiomediastinal silhouette. Sternotomy. Surgical clips in the neck and upper chest. No acute osseous findings. IMPRESSION: Interstitial prominence throughout both lungs. Mild patchy airspace opacity in the lower lungs may re present multifocal pneumonitis. Report Dictated By: Ministerio Varma MD at 04/10/2018 8:50 PM Report E-Signed By: Ministerio Varma MD at 04/10/2018 8:53 PM WSN:[id number]
[2018-04-10] MEDS ORDERED: AMPICILLIN/SULBACT (*) 3 GM VL 3 GM in NS(*) 0.9% 100 ML BAG 100 ML IVPB ONE (21:35)
--- NOTE | 2018-04-10 22:13 | History & Physical ---
History of Present Illness Chief Complaint Vomiting and fever. History of Present Illness 18 yr old male from [facility] who has a previous traumatic brain injury with quadriplegia who was sent to ER after numerous episodes of vomiting as well as low grade fever. He is unresponsive and not able to provide any type of information. He had a very similar episode a month ago and was diagnosed with aspiration pneumonia and constipation. Treated as inpatient and discharged back to [facility]. There is no documentation in the EMR as to how well he recovered or what follow-up labs or X-rays were done. Admitted this evening at request of [employer] in ER. The ER did speak with his mother over the phone and she requested he be treated medically but that he is DNR/DNI status otherwise. This is consistent with previous requests. History Unable To Obtain Past Medical: Unable to Obtain/Update Problems: (1) Traumatic brain injury Status: Chronic (2) Quadriplegia Status: Chronic (3) Constipation Status: Chronic Home Meds Reported Medications Metoclopramide Hcl (METOCLOPRAMIDE HCL) 5 Mg Tablet, 5 MG PO 04/10/18 Ondansetron (ZOFRAN ODT) 4 Mg Tab.rapdis, 4 MG PO Q8H PRN for NAUSEA, TAB.JAIDA 03/12/18 Baclofen (BACLOFEN) 20 Mg Tablet, 20 MG FT QID, #15 TAB 03/11/18 Polyethylene Glycol 3350 (MIRALAX) 17 Gm Powd.pack, 17 GM FT DAILY, PKT 03/11/18 Bisacodyl (BISACODYL) 10 Mg Supp.rect, 10 MG RC DAILY, SUPP.RECT 03/11/18 Sertraline Hcl (SERTRALINE HCL) 25 Mg Tablet, 1 TAB FT QDAY, TAB 02/08/18 Quetiapine Fumarate (QUETIAPINE FUMARATE) 25 Mg Tablet, 12.5 MG FT QDAY 02/08/18 Potassium Chloride (POTASSIUM CHLORIDE) 20 Meq Packet, 20 MEQ FT QDAY, PACKET 02/08/18 Oxycodone/Acetaminophen (OXYCODONE/ACETAMINOPHEN 5MG/325 MG) 5 Mg/325 Mg Tab, 1 TAB FT Q8H 02/08/18 Eyelid Cleanser Combination #5 (OCUSOFT LID SCRUB) 1 Each Med..pad, 1 EACH TP BID 02/08/18 Hyoscyamine Sulfate (LEVSIN) 0.125 Mg Tablet, 0.125 MG FT BID 02/08/18 Clonazepam (KLONOPIN) 1 Mg Tablet, 1 MG FT BID, #7 TAB 02/08/18 Glycopyrrolate (GLYCOPYRROLATE) 2 Mg Tablet, 2 MG FT TID 02/08/18 Levetiracetam (LEVETIRACETAM) 500 Mg Tablet, 500 MG FT BID 02/07/18 Discontinued Reported Medications Dantrolene Sodium (DANTROLENE SODIUM) 25 Mg Capsule, 25 MG PO BID, CAPSULE 03/11/18 Discontinued Scripts Amoxicillin/Pot Clav 875-125 Mg Tab (AUGMENTIN 875-125 TABLET) 1 Each Tablet, 1 TAB FT Q12H, #6 TAB Prov:NITHIN LEMUS 03/14/18 Allergies: Coded Allergies: No Known Drug Allergies (Unverified , 02/18/18) Hx Smoking: No Hx Alcohol Use: No Hx Substance Use Disorder: No Review of Systems Constitutional: Fever Neurological: Other (quadriplegia) Gastrointestinal: Vomiting, Other (feeding tube) Genitourinary: Other (moraes cath) Psychiatric: Other (unresponsive.) Exam Vital Signs Vital Signs Date Time Temp Pulse Resp B/P (MAP) Pulse Ox O2 Delivery O2 Flow Rate FiO2 04/10/18 23:00 120/69 (86) 04/10/18 22:38 101 20 93 04/10/18 18:05 3.0 04/10/18 17:29 101.3 Room Air General Appearance: Alert, Awake, No Acute Distress, Other (Unable to speak or follow commands.) Neuro: Other (Able to move extremities to a minimal degree. Fairly good rotation of neck.) Cardiovascular: Regular Rate and Rhythm, Other (S1S2 are normal. No murmur, gallops or rubs.) Respiratory: Clear to Auscultation Chest: Other (Extensive scar from xyphoid process to sternum extending along anterior neck to mastoid process on left. ) GI: Abd Soft and Non-Tender, Other (BS are present. Feeding tube LUQ. No organomegaly or masses. ) : Other (Moraes in place.) Extremities: Soft and Non Tender, Warm, Pulses, Perfused, Other (No edema.) Integumentary: Other (See above.) Psych: Other (Unable to follow commands and does not speak. Will show facial expression with smile.) Medical Decision Making Data Points Result Diagram: 04/10/18 1804 04/10/18 1804 Item Value Date Time Calcium Level 9.5 mg/dl 04/10/18 1804 Total Bilirubin 1.1 mg/dl 04/10/18 1804 Aspartate Amino Transf (AST/SGOT) 54 U/L H 04/10/18 1804 Alanine Aminotransferase (ALT/SGPT) 142 U/L H 04/10/18 1804 Alkaline Phosphatase 149 U/L H 04/10/18 1804 Total Protein 8.3 g/dl H 04/10/18 1804 Albumin 4.5 g/dl 04/10/18 1804 Amylase Level 73 U/L 04/10/18 1804 Lipase 19 U/L L 04/10/18 1804 Urine Clarity Slightly-cloudy 04/10/18 1851 Urine Color Myriam 04/10/18 1851 Urine pH 6.0 pH 04/10/18 1851 Urine Specific [place] 1.023 04/10/18 1851 Urine Protein Negative mg/dL 04/10/18 1851 Urine Glucose (UA) Negative mg/dL 04/10/18 1851 Urine Ketones Negative mg/dL 04/10/18 1851 Urine Blood Negative 04/10/18 1851 Urine Nitrite Negative 04/10/18 1851 Urine Bilirubin Negative 04/10/18 1851 Urine Urobilinogen 2.0 mg/dL 04/10/18 1851 Urine Leukocyte Esterase Negative 04/10/18 1851 Urine RBC <1 /HPF 04/10/18 1851 Urine WBC 3 /HPF 04/10/18 1851 Urine Mucus Few /HPF 04/10/18 1851 Urine Squamous Epithelial Cells None /LPF 04/10/18 1851 Urine Bacteria Negative /HPF 04/10/18 1851 Influenza Virus Type A (PCR) Negative 04/10/18 1736 Influenza Virus Type B (PCR) Negative 04/10/18 173 EKG / Imaging Monitor Interpretation: Normal Sinus Rhythm Imaging CXR and Ct of lower lungs shows patchy infiltrates throughout. Abdomen shows severe constipation with dilation of rectum. Pre-Admit Course ED Medications Reviewed. Medical Record Review: Yes Assessment and Plan Problems: (1) Aspiration pneumonia Status: Acute Assessment & Plan: Will use amp/sulbactam 3 gms q 6 hours since it seemed to work well last time. Blood and urine cultures have been done. Flu studies are negative. O2 as needed. He is a DNR/DNI at mothers request. (2) Constipation Status: Chronic Assessment & Plan: Will use glycerine supp along with SS enema. Continue tube feedings. Will disimpact if needed. (3) Elevated liver enzymes Status: Acute Assessment & Plan: Exact source is unclear. Will recheck in AM. (4) Traumatic brain injury Status: Chronic Assessment & Plan: No changes. (5) Quadriplegia Status: Chronic Assessment & Plan: No changes. Time Spent on Plan of Care: > 30 min Venous Thromboembolism VTE Risk Physician Assess for VTE Risk: Yes Patient's VTE Risk: Low VTE Diagnostic Test 2 Days Prior to Admit: No Antithrombotics Is Pt On Any Antithrombotics?: No Prophylaxis Tx Contraindicated Pharmacological Contraindicati: Pt at Low Risk for VTE Mechanical Contraindications: Pt at Low Risk for VTE Exam Sepsis Risk: No Definite Risk Problem Qualifiers (1) Aspiration pneumonia: Aspiration pneumonia type: unspecified Laterality: bilateral Lung location: lower lobe of lung Qualified Codes: J69.0 - Pneumonitis due to inhalation of food and vomit (2) Constipation: Constipation type: unspecified constipation type Qualified Codes: K59.00 - Constipation, unspecified SHAUNA WILEY MD FACP Apr 10, 2018 22:13
[2018-04-10] MEDS ORDERED: GLYCERIN ADULT SUPP PR ONE (22:25)
[2018-04-10] MEDS ORDERED: ALBUTEROL 2.5 MG/3 ML NEB NEB PRN (22:25)
[2018-04-10 23:15] VITALS: BP 105/63
[2018-04-10 23:18] VITALS: BP 105/63
[2018-04-11] MEDS ORDERED: AMPICILLIN/SULBACTAM 3 GM VIAL ONE (00:44)
[2018-04-11] MEDS ORDERED: NS(*) 0.9% 100 ML BAG 100 ML ONE (00:45)
[2018-04-11] MEDS ORDERED: AMPICILLIN/SULBACT (*) 3 GM VL 3 GM in NS(*) 0.9% 100 ML BAG 100 ML IVPB SCH ×3 (03:00→10:00)
[2018-04-11] MEDS ORDERED: NS(*) 0.9% 250 ML BAG 250 ML ONE (04:03)
[2018-04-11 04:11] VITALS: BP 97/54
[2018-04-11 07:04] LABS: PLATELET COUNT, AUTOMATED 106 K/uL (150-450)
[2018-04-11 08:04] VITALS: BP 92/65
[2018-04-11] MEDS: POLYETHYLENE GLYCOL 17 GM PKT FT SCH (09:40)
[2018-04-11] MEDS: AMOX/CLAV 875 MG TAB PO SCH ×2 (09:53→17:48)
--- NOTE | 2018-04-11 11:45 | Hospitalist Progress Note ---
Subjective Progress Notes Subjective This patient was admitted for pneumonia and constipation. He had no acute events overnight. Patient Complains of: Cardiovascular: No: Chest Pain Respiratory: No: Cough, Shortness of Breath Physical Exam Vital Signs Date Time Temp Pulse Resp B/P (MAP) Pulse Ox O2 Delivery O2 Flow Rate FiO2 04/11/18 08:04 92 Nasal Cannula 2.0 04/11/18 08:04 98.8 75 20 92/65 (74) Intake and Output 04/11/18 07:00 Intake Total 1313 ml Output Total 1650 ml Balance -337 ml Intake IV Total 1100 ml Tube Feeding 173 ml Tube Irrigant 40 ml Output Urine Total 1650 ml # Bowel Movements 2 Cardiovascular: Regular Rate and Rhythm Respiratory: Clear to Auscultation GI: Soft and Non-Tender Result Diagram: 04/11/1823 04/11/18622 Item Value Date Time Blood Culture - Preliminary Resulted 04/10/18 1804 Blood NO GROWTH AFTER 1 DAY, REINCUBATED Blood Culture - Preliminary Resulted 04/10/18 1742 Blood NO GROWTH AFTER 1 DAY, REINCUBATED Imaging Chest x-ray reviewed. Monitor Interpretation: Normal Sinus Rhythm Assessment and Plan Problems: (1) Aspiration pneumonia Status: Acute Assessment & Plan: He does have a previous history of aspiration. His chest x- ray is reported to show interstitial findings. He did present with vomiting and cough. We have been treating him with IV Unasyn. He did have a fever at admission, but has been afebrile since. We have converted him to oral Augmentin. (2) Constipation Status: Chronic Assessment & Plan: Resolved with constipation protocol. (3) Elevated liver enzymes Status: Acute Assessment & Plan: Exact source is unclear. (4) Traumatic brain injury Status: Chronic Assessment & Plan: No changes. (5) Quadriplegia Status: Chronic Assessment & Plan: No changes. Exam Sepsis Risk: No Definite Risk Problem Qualifiers (1) Aspiration pneumonia: Aspiration pneumonia type: unspecified Laterality: bilateral Lung location: lower lobe of lung Qualified Codes: J69.0 - Pneumonitis due to inhalation of food and vomit (2) Constipation: Constipation type: unspecified constipation type Qualified Codes: K59.00 - Constipation, unspecified NITHIN LEMUS DO Apr 11, 2018 11:45
--- NOTE | 2018-04-11 16:41 | Medical Nutrition Therapy ---
Nutrition Anthropometrics Weight (Pounds): 132 Weight (Calculated Kilograms): 59.874 Joey Nutrition Score: Adequate Joey Nutrition Risk Score: 9 Dietary Referral Nutrition Risk Factors: Tube Feeding Nutrition Risk Comment: tube feeding Nutrition/Food History Tube Feed Prior to Admit Nutritional Diagnosis Nutritional Risk Acuity 2: Tube Feed Stable Past Medical History: Hx of quadriplegia and traumatic brain injury. Nutritional Acuity: 2-Moderate Diet Type: Tube Feeding (TF) Nutrition Intervention: Cont diet as ordered Nutritional Support Tube Feeding Formulas: Jevity 1cal/ml-Standard Tube Feeding Supplement Streng: Full Feeding Route: PEG Rate: 60 ML/hr Current Calories: 1526 Current Protein: 64 Total Current Calories: 1526 Nutrition Monitoring & Eval RD Patient Assessment Time: [address] Assessment Type: RD Assessment Patient Nutrition Acuity: 2-Moderate Follow Up Date: Apr 12, 2018 SLOAN ANDERS Apr 11, 2018 16:41
[2018-04-11 18:12] VITALS: BP 130/64
[2018-04-11 20:11] VITALS: BP 111/50
[2018-04-12 00:50] VITALS: BP 109/63
[2018-04-12 03:50] VITALS: BP 103/66
[2018-04-12 08:03] VITALS: BP 93/75
[2018-04-12] MEDS: AMOX/CLAV 875 MG TAB PO SCH ×2 (08:12→17:22)
[2018-04-12] MEDS: POLYETHYLENE GLYCOL 17 GM PKT FT SCH (08:24)
[2018-04-12] MEDS ORDERED: METO5SOL2 FT (11:21)
[2018-04-12] MEDS ORDERED: LEVE500S9 PO (11:21)
[2018-04-12] MEDS ORDERED: ONDANSETRON 4 MG ODT TABDP SL PRN (11:25)
[2018-04-12] MEDS ORDERED: ONDANSETRON 4 MG ODT TABDP SL ONE (11:25)
[2018-04-12] MEDS ORDERED: BISACODYL 10 MG SUPP PR PRN (11:25)
[2018-04-12] MEDS ORDERED: METOCLOPRAMIDE 10 MG/2 ML SDV IVP PRN (11:25)
[2018-04-12] MEDS ORDERED: NS(*) 0.9% 1000 ML BAG 1,000 ML IV ONE (11:55)
[2018-04-12] MEDS: SERTRALINE HCL 50 MG TAB PO SCH (12:21)
[2018-04-12] MEDS: BACLOFEN 10 MG TAB FT SCH ×3 (12:21→23:57)
[2018-04-12] MEDS: levETIRAcetam(*)500 MG/5 ML VI 500 MG in NS(*) 0.9% 100 ML BAG 100 ML IV SCH ×2 (12:21→23:57)
[2018-04-12] MEDS: POTASSIUM CHL PWDR 20 MEQ PKT FT SCH (12:22)
[2018-04-12] MEDS: clonazePAM 1 MG TAB FT SCH ×2 (12:22→21:42)
--- NOTE | 2018-04-12 15:24 | Hospitalist Progress Note ---
Subjective Progress Notes Subjective Nursing reports the patient's urine output has been low. He is getting his TF and free fluid but has continued to have low grade fever. Physical Exam Vital Signs Date Time Temp Pulse Resp B/P (MAP) Pulse Ox O2 Delivery O2 Flow Rate FiO2 04/12/18 14:47 86 04/12/18 08:20 Nasal Cannula 3.0 04/12/18 08:03 99.0 89 20 93/75 (81) Intake and Output 04/12/18 07:00 Intake Total 2100 ml Output Total 275 ml Balance 1825 ml Tube Feeding 1554 ml Tube Irrigant 546 ml Output Urine Total 275 ml # Bowel Movements 4 # Emeses 1 General Appearance: Alert, Awake, Other (Nonverbal.) Neuro: Other (TBI. Patient does not respond to questions or appear to understand.) Eyes: PERRLA Neck: Other (Large scar L neck.) Cardiovascular: Regular Rate and Rhythm Chest: Other (Large midline chest scar which continues into his L neck.) GI: Soft and Non-Tender, Other (FT in place left abdomen.) Extremities: Warm, Other (Flexion contractures. ) Integumentary: Other (Scarring as above.) Result Diagram: 04/11/1862204/11/18622 Monitor Interpretation: Normal Sinus Rhythm Assessment and Plan Problems: (1) Aspiration pneumonia Status: Acute Assessment & Plan: He does have a previous history of aspiration. Per [facility] records he is now NPO, just FT diet. His chest x-ray is reported to show interstitial findings. He did present with vomiting and cough. He was initially placed on IV Unasyn. He did have a fever of 101.3 at admission. Looking at his axillary temps, he continues to have a low grade fever with T max this am of 100 axillary. He was switched to oral Augmentin yesterday. Urine output has been poor. Will hydrate and monitor temps. If he continues to be febrile, consider restarting Unasyn. (2) Constipation Status: Chronic Assessment & Plan: Resolved with constipation protocol. (3) Elevated liver enzymes Status: Acute Assessment & Plan: Exact source is unclear. Improving. (4) Traumatic brain injury Status: Chronic Assessment & Plan: No changes. (5) Quadriplegia Status: Chronic Assessment & Plan: No changes. Time Spent on Plan of Care: < 30 min Exam Sepsis Risk: No Definite Risk Problem Qualifiers (1) Aspiration pneumonia: Aspiration pneumonia type: unspecified Laterality: bilateral Lung location: lower lobe of lung Qualified Codes: J69.0 - Pneumonitis due to inhalation of food and vomit (2) Constipation: Constipation type: unspecified constipation type Qualified Codes: K59.00 - Constipation, unspecified GERSON CASTILLO MD Apr 12, 2018 15:24
--- NOTE | 2018-04-12 15:59 | Medical Nutrition Therapy ---
Nutrition Anthropometrics Weight (Pounds): 132 Weight (Calculated Kilograms): 59.874 Joey Nutrition Score: Adequate Joey Nutrition Risk Score: 9 Dietary Referral Nutrition Risk Factors: Tube Feeding Nutrition Risk Comment: tube feeding Physical Findings Physical Appearance: not able to assess BMI Skin Appearance Skin Appearance: Edema Edema Location Modifier: Edema Location: Type of Edema: Degree of Edema: Gastrointestinal Symptoms GI Symtoms: Tube Present: PEG, Feeding Bowel Sounds: Recent Bowel Pattern: Constipated Stool Characteristics: Nutrition/Food History Tube Feed Prior to Admit Nutritional Diagnosis Nutritional Risk Acuity 2: Tube Feed Stable Past Medical History: Hx of quadriplegia and traumatic brain injury. Nutritional Acuity: 2-Moderate Nutrition Diagnosis: Increased Nutrient Needs Nutrition Etiology: Physiological Causes Nutrition Problem/Etiology/Sym: Increased Nutrient Needs related to physiological causes increasing nutrient needs, e.g., aspiration pneumonia AEB estimated intake of TF containing needed nutrients less than estimated requirements. Energy Requirement: 2100 (Actual BW Kg X 35) Protein Requirement: 72 (Actual BW Kg X 1.2) Fluid Requirement: 2100 Diet Type: Tube Feeding (TF) Nutrition Intervention: Cont diet as ordered Nutritional Support Tube Feeding Formulas: Jevity 1cal/ml-Standard Tube Feeding Supplement Streng: Full Feeding Route: PEG Rate: 60 ML/hr Current Calories: 1526 Current Protein: 64 Total Current Calories: 1526 Recommended Enteral / Parental: Tube Feeding Recommended Tube Feeding Formu: Osmolite 1.5cal/ml-Hi Bryant Tube Feeding Supplement Streng: Full Recommended Feeding Route: PEG Recommended Rate: 60 mL/hr Recommended Calories: 2160 Recommended Protein: 90 Nutrition Monitoring & Eval RD Patient Assessment Time: [address] Assessment Type: RD Re-Assessment Patient Nutrition Acuity: 2-Moderate Follow Up Date: Apr 13, 2018 Nutritional Comment: 04/12/18 [facility] pt admitted for aspiration pneumonia. Pt is a 18-year-old traumatic brain injury quadriplegic, on TF at [facility]. Alb 3.8. Not able to assess BMI d/t no avaliable height. Receiving standard Jevity at 60mL/hr. This provides 1526 Kcals, 1202mL free water and 64 grams of protein per day. Using pts wt of 60 Kg X 35 Kcal, pt needs approx. 2100 Kcal/day. Switching to Osmolite 1.5 would provide 2160 Kcal, 1097 free water, and 90 grams protein per day. After urine output increases, might consider changing TF to Osmolite 1.5 @ 60mL/hr. Follow labs, TF, etc. -SLOAN KATHLEEN Apr 12, 2018 15:59
[2018-04-12 17:29] VITALS: BP 108/79
[2018-04-12 20:16] VITALS: BP 97/59
[2018-04-12] MEDS: HYOSCYAMINE 0.125 MG/ML PO SCH (21:42)
[2018-04-13 00:06] VITALS: BP 110/61
[2018-04-13 03:24] VITALS: BP 94/48
[2018-04-13] MEDS: BACLOFEN 10 MG TAB FT SCH ×2 (05:15→11:44)
[2018-04-13 05:38] LABS: PLATELET COUNT, AUTOMATED 105 K/uL (150-450)
[2018-04-13 07:51] VITALS: BP 84/50
[2018-04-13] MEDS: POTASSIUM CHL PWDR 20 MEQ PKT FT SCH (08:15)
[2018-04-13] MEDS: SERTRALINE HCL 50 MG TAB PO SCH (08:15)
[2018-04-13] MEDS: clonazePAM 1 MG TAB FT SCH (08:16)
[2018-04-13] MEDS: POLYETHYLENE GLYCOL 17 GM PKT FT SCH (08:16)
[2018-04-13] MEDS: AMOX/CLAV 875 MG TAB PO SCH (08:16)
[2018-04-13] MEDS: HYOSCYAMINE 0.125 MG/ML PO SCH (08:16)
[2018-04-13] MEDS ORDERED: NS(*) 0.9% 500 ML BAG 500 ML IV ONE (08:30)
[2018-04-13 08:47] VITALS: BP 88/58
[2018-04-13 09:06] VITALS: BP 92/56
--- NOTE | 2018-04-13 09:30 | Antimicrobial Stewardship ---
Antimicrobial Stewardship Empiricly appropriate: Yes (Aspiration Pneumonia and UTI) Significant PMH: Yes Duplicate/overlapping Rx: No Support empiric regimen: Yes Comment Empiric treatment of Aspiration Pneumonia, non-verbal patient unable to report symptoms of UTI, febrile with elevated WBC, blood/urine cultures obtained Approriate Cultures done: Yes Cultures need repeate: No Gram stain show Microbs: Yes Organism identified: Yes (UTI- enterococcus - crawford-sensitive) Review the antibiotic sensitiv: Yes Renal/Hepatic dosing: Yes Appropriate dose for site: Yes Reviewed for Drug Interaction: Yes Monitored for Toxicities: Yes Clinically stable/improving: Yes Comment WBC wnl, afebrile IV to PO Opportunity: Yes (Already on oral antibiotics) Determine cumulative duration: 7-10 days --chronic aspiration risk Determine standard duration: 7-10 days Verified plan for regimen: Yes Comment Continue Augmentin 875mg po BID x 7-10 days---will also cover enterococcus UTI NELSON CHARLES Apr 13, 2018 09:30
[2018-04-13] MEDS ORDERED: MORPHINE 2 MG/ML SYR IVP ONE ×2 (09:35→09:50)
[2018-04-13] MEDS ORDERED: MORPHINE 2 MG/ML SYR ONE (09:55)
[2018-04-13] MEDS ORDERED: AMOX1TAB9 PO (10:02)
--- NOTE | 2018-04-13 10:09 | Hospitalist Depart ---
Discharge Summary Reason for Hosp/Final Diag: (1) Aspiration pneumonia Status: Acute Hospital Course & Plan: He does have a previous history of aspiration. Per [facility] records he is now NPO, just FT diet. His chest x-ray is reported to show interstitial findings. He did present with vomiting and cough. He was initially placed on IV Unasyn. He did have a fever of 101.3 at admission, which has steadily decreased throughout admission. He was switched to oral Augmentin 04/11. Urine output has improved, moraes to be removed today. He will need four more days of Augmentin. He will be transferred back to [facility]. (2) Enterococcus UTI Status: Acute Hospital Course & Plan: A urine culture was performed since he had a fever, which showed enterococcus. Augmentin will be continued and is susceptible to treat this infection. Recommend total 7 days antibiotic coverage. (3) Constipation Status: Chronic Hospital Course & Plan: Resolved with constipation protocol. (4) Elevated liver enzymes Status: Acute Hospital Course & Plan: Exact source is unclear. Improving. (5) Traumatic brain injury Status: Chronic Hospital Course & Plan: No changes. (6) Quadriplegia Status: Chronic Hospital Course & Plan: No changes. Departure Latest Vital Signs Vital Signs 04/13/18 04/13/18 04/13/18 08:47 08:50 09:06 Pulse 64 Resp 16 B/P (MAP) 92/56 (68) Pulse Ox 93 O2 Delivery Nasal Cannula O2 Flow Rate 1.0 Weight (Pounds): 132 Weight (Ounces): 8.0 Result Diagram: 04/13/18 0514 04/13/18 0514 Condition: Improved Discharge: Custodial Discharge Instructions Home Meds Reported Medications Metoclopramide Hcl (METOCLOPRAMIDE HCL) 5 Mg/5 Ml Solution, 5 MG FT Q6H PRN for NAUSEA/VOMITING 04/12/18 Levetiracetam (LEVETIRACETAM) 500 Mg/5 Ml Solution, 5 ML PO Q12H, ML 04/12/18 Ondansetron (ZOFRAN ODT) 4 Mg Tab.rapdis, 4 MG PO Q8H PRN for NAUSEA, TAB.JAIDA 03/12/18 Baclofen (BACLOFEN) 20 Mg Tablet, 20 MG FT Q6H, #15 TAB 8/29/18 Polyethylene Glycol 3350 (MIRALAX) 17 Gm Powd.pack, 17 GM FT DAILY, PKT 03/11/18 Bisacodyl (BISACODYL) 10 Mg Supp.rect, 10 MG RC DAILY, SUPP.RECT 03/11/18 Sertraline Hcl (SERTRALINE HCL) 25 Mg Tablet, 1 TAB FT QDAY, TAB 02/08/18 Potassium Chloride (POTASSIUM CHLORIDE) 20 Meq Packet, 20 MEQ FT QDAY, PACKET 02/08/18 Oxycodone/Acetaminophen (OXYCODONE/ACETAMINOPHEN 5MG/325 MG) 5 Mg/325 Mg Tab, 1 TAB FT HS 02/08/18 Eyelid Cleanser Combination #5 (OCUSOFT LID SCRUB) 1 Each Med..pad, 1 EACH TP BID 02/08/18 Hyoscyamine Sulfate (LEVSIN) 0.125 Mg Tablet, 0.125 MG FT BID 02/08/18 Clonazepam (KLONOPIN) 1 Mg Tablet, 1 MG FT BID, #7 TAB 02/08/18 Glycopyrrolate (GLYCOPYRROLATE) 2 Mg Tablet, 2 MG FT TID 02/08/18 Discontinued Reported Medications Metoclopramide Hcl (METOCLOPRAMIDE HCL) 5 Mg Tablet, 5 MG PO 04/10/18 Quetiapine Fumarate (QUETIAPINE FUMARATE) 25 Mg Tablet, 12.5 MG FT QDAY 02/08/18 Levetiracetam (LEVETIRACETAM) 500 Mg Tablet, 500 MG FT BID 02/07/18 Dantrolene Sodium (DANTROLENE SODIUM) 25 Mg Capsule, 25 MG PO BID, CAPSULE 03/11/18 Discontinued Scripts Amoxicillin/Pot Clav 875-125 Mg Tab (AUGMENTIN 875-125 TABLET) 1 Each Tablet, 1 TAB FT Q12H, #6 TAB Prov:NITHIN LEMUS DO 03/14/18 Venous Thromboembolism Antithrombotics Is Pt On Any Antithrombotics?: No Problem Qualifiers (1) Aspiration pneumonia: Aspiration pneumonia type: unspecified Laterality: bilateral Lung location: lower lobe of lung Qualified Codes: J69.0 - Pneumonitis due to inhalation of food and vomit (2) Constipation: Constipation type: unspecified constipation type Qualified Codes: K59.00 - Constipation, unspecified CLAU CAVAZOS Apr 13, 2018 10:09
[2018-04-13] MEDS ORDERED: levETIRAcetam 500 MG TAB PO ONE (11:25)
== END 2018-04-13 12:11 | DRG 177 ==
LOC: ER 17:46 → MED 21:46
PROVIDERS: ADMIT Internal Medicine; ATTEND Internal Medicine
DX: J69.0 Pneumonitis due to inhalation of food and vomit (principal); G82.50 Quadriplegia, unspecified; N39.0 Urinary tract infection, site not specified; B95.2 Enterococcus as the cause of diseases classified elsewhere; Z66 Do not resuscitate; K59.00 Constipation, unspecified; Z87.820 Personal history of traumatic brain injury
CPT/HCPCS: 36415; 71045; 74177; 81001; 82040; 82150; 82247; 82310; 82374; 82435; 82565; 82947; 83690; 84075; 84132; 84155; 84295; 84450; 84460; 84520; 85025; 87040; 87077; 87088; 87186; 87502; 96361; 96365; 99284; C1758; J0295; J1953; J2270; J7030; J7040; J7050; Q9967; S0119

== ENCOUNTER → 2018-04-10 | Outpatient (CLI) | payer MEDICAID ==
[~2018-04-10] MED LIST changes: +AMOX-559 FT; +AMOX1TAB9 PO; +BACL-51 FT; +BISA10SU62 RC; +DANT25CA PO; +LEVE500S9 PO; +METO5SOL2 FT; +METO5TAB75 PO; +ONDA4TAB PO; +POLY17PO25 FT
== END ==
LOC: AMB 17:08
PROVIDERS: ATTEND Nurse Practitioner
DX: R11.12 Projectile vomiting (principal); R53.81 Other malaise; G82.20 Paraplegia, unspecified; Z74.01 Bed confinement status
CPT/HCPCS: A0425; A0429

== ENCOUNTER → 2018-04-13 | Outpatient (CLI) | payer MEDICAID ==
[~2018-04-13] MED LIST changes: +AMOX1TAB9 PO; +LEVE500S9 PO; +METO5SOL2 FT; +METO5TAB75 PO
== END ==
LOC: AMB 11:57
PROVIDERS: ATTEND Nurse Practitioner
DX: G82.50 Quadriplegia, unspecified (principal)
CPT/HCPCS: A0425; A0428

== ENCOUNTER 2018-07-10 18:50 | Inpatient (IN) | payer MEDICAID ==
[~2018-07-10 18:50] MED LIST changes: -METO10I PO
--- NOTE | 2018-07-10 19:14 | ER Report ---
History and Physical Time Seen By MD: 19:08 Hx. of Stated Complaint: Per report from [facility], patient has been vomiting and unable to tolerate any tube feedings HPI/ROS CHIEF COMPLAINT: Possible bowel obstruction HISTORY OF PRESENT ILLNESS: This is a 18-year-old male who presents to the emergency department from the [facility] for a possible bowel obstruction. 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 The staff at the [facility] became concerned of the changes in the patient's stool, and sent him to the emergency department for possible bowel obstruction evaluation. The patient is unresponsive, he will open his eyes, he will track but unable to answer questions, has contractures this is the patient's baseline. No apparent fevers. No concerns of aspiration pneumonia at this time. No other complaints at this time. REVIEW OF SYSTEMS: Constitutional: No fever, no chills. Eyes: No discharge. ENT: No sore throat. Cardiovascular: No chest pain, no palpitations. Respiratory: No cough, no shortness of breath. Gastrointestinal: As above. Genitourinary: No hematuria. Musculoskeletal: No back pain. Skin: No rashes. Neurological: No headache. Allergies: Coded Allergies: No Known Drug Allergies (Unverified , 02/18/18) Home Meds Active Scripts Amoxicillin/Potassium Clav (AMOX TR-K CLV 875-125 MG TAB) 1 Each Tablet, 875 MG PO BIDBS, #8 TAB Prov:CAVAZOSCLAU BARGE CAPTAIN 04/13/18 Reported Medications Metoclopramide Hcl (METOCLOPRAMIDE HCL) 5 Mg/5 Ml Solution, 5 MG FT Q6H PRN for NAUSEA/VOMITING 04/12/18 Levetiracetam (LEVETIRACETAM) 500 Mg/5 Ml Solution, 5 ML PO Q12H, ML 04/12/18 Ondansetron (ZOFRAN ODT) 4 Mg Tab.rapdis, 4 MG PO Q8H PRN for NAUSEA, TAB.JAIDA 03/12/18 Baclofen (BACLOFEN) 20 Mg Tablet, 20 MG FT Q6H, #15 TAB 03/11/18 Polyethylene Glycol 3350 (MIRALAX) 17 Gm Powd.pack, 17 GM FT DAILY, PKT 03/11/18 Bisacodyl (BISACODYL) 10 Mg Supp.rect, 10 MG RC DAILY, SUPP.RECT 03/11/18 Sertraline Hcl (SERTRALINE HCL) 25 Mg Tablet, 1 TAB FT QDAY, TAB 02/08/18 Potassium Chloride (POTASSIUM CHLORIDE) 20 Meq Packet, 20 MEQ FT QDAY, PACKET 02/08/18 Oxycodone/Acetaminophen (OXYCODONE/ACETAMINOPHEN 5MG/325 MG) 5 Mg/325 Mg Tab, 1 TAB FT HS 02/08/18 Eyelid Cleanser Combination #5 (OCUSOFT LID SCRUB) 1 Each Med..pad, 1 EACH TP BID 02/08/18 Hyoscyamine Sulfate (LEVSIN) 0.125 Mg Tablet, 0.125 MG FT BID 02/08/18 Clonazepam (KLONOPIN) 1 Mg Tablet, 1 MG FT BID, #7 TAB 02/08/18 Glycopyrrolate (GLYCOPYRROLATE) 2 Mg Tablet, 2 MG FT TID 02/08/18 Past Medical/Surgical History The patient has a past medical surgical history of renal injury, quadriplegia, CVA, TIA, carotid injury, tachycardia, PEG tube, contractures multiple with peak surgeries. Reviewed Nurses Notes: Yes Hx Smoking: No (Pt nonverbal) Hx Substance Use Disorder: No Hx Alcohol Use: No Constitutional Vital Sign - Last 24 Hours 07/10/18 07/10/18 07/10/18 07/10/18 18:52 19:01 19:03 19:20 Temp 100.1 Pulse 112 115 Resp 15 B/P (MAP) 143/114 (124) 143/112 126/80 (95) Pulse Ox 96 95 O2 Delivery Nasal Cannula 07/10/18 07/10/18 07/10/18 19:50 20:00 20:20 Pulse 95 B/P (MAP) 122/81 (95) Pulse Ox 95 90 Physical Exam General Appearance: The patient is alert, has no immediate need for airway protection and no signs of toxicity. Eyes: Pupils equal and round no pallor or injection. ENT, Mouth: Mucous membranes are moist. Respiratory: There are no retractions, lungs are clear to auscultation. Cardiovascular: Regular rate and rhythm, murmur, no clicks or rubs. Gastrointestinal: Abdomen is soft, mild guarding to the right side, hyperresonant and distant bowel sounds however there are bowel sounds in all 4 quadrants. No abdominal bruits. Gastrostomy tube in place, no skin breakdown or purulent drainage. Neurological: The patient is at his baseline mental status. Skin: Warm and dry, no rashes. Musculoskeletal: Neck is supple non tender. Extremities are nontender, nonswollen and have full range of motion. DIFFERENTIAL DIAGNOSIS: After history and physical exam differential diagnosis was considered for abdominal pain including but not limited to appendicitis, bowel obstruction, cholecystitis, gastritis and urinary tract infection. Medical Decision Making Data Points Result Diagram: 07/10/18192907/10/181929 Laboratory Hematology Test 07/10/18 19:20 07/10/18 19:30 Urine Color Myriam Urine Clarity Slightly-cloudy Urine pH 5.0 pH (4.8-9.5) Urine Specific [place] 1.031 Urine Protein 30 mg/dL (NEGATIVE) Urine Glucose (UA) Negative mg/dL (NEGATIVE) Urine Ketones Trace mg/dL (NEGATIVE) Urine Blood Negative (NEGATIVE) Urine Nitrite Negative (NEGATIVE) Urine Bilirubin Negative (NEGATIVE) Urine Urobilinogen 2.0 mg/dL (0.2-1.9) Urine Leukocyte Esterase Negative (NEGATIVE) Urine RBC 37 /HPF (0-2/HPF) Urine WBC 6 /HPF (0-5/HPF) Urine Squamous Epithelial Cells Few /LPF (NONE-FEW) Urine Bacteria Few /HPF (NONE-FEW) Urine Mucus Few /HPF (NONE-FEW) Red Blood Count 6.02 M/uL (4.00-5.60) Mean Corpuscular Volume 89.8 fL (80.0-96.0) Mean Corpuscular Hemoglobin 30.6 pg (26.0-33.0) Mean Corpuscular Hemoglobin Concent 34.0 g/dL (32.0-36.0) Red Cell Distribution Width 14.3 % (11.5-14.5) Mean Platelet Volume 13.2 fL (7.2-11.1) Neutrophils (%) (Auto) 72.8 % (39.4-72.5) Lymphocytes (%) (Auto) 19.2 % (17.6-49.6) Monocytes (%) (Auto) 7.2 % (4.1-12.4) Eosinophils (%) (Auto) 0.6 % (0.4-6.7) Basophils (%) (Auto) 0.2 % (0.3-1.4) Nucleated RBC Relative Count (auto) 0.1 /100WBC Neutrophils # (Auto) 7.3 K/uL (2.0-7.4) Lymphocytes # (Auto) 1.9 K/uL (1.3-3.6) Monocytes # (Auto) 0.7 K/uL (0.3-1.0) Eosinophils # (Auto) 0.1 K/uL (0.0-0.5) Basophils # (Auto) 0.0 K/uL (0.0-0.1) Nucleated RBC Absolute Count (auto) 0.01 K/uL Peripheral Blood Smear Yes Y/N Sodium Level 151 mmol/L (137-145) Potassium Level 3.3 mmol/L (3.5-5.0) Chloride Level 111 mmol/L (98-107) Carbon Dioxide Level 32 mmol/L (22-30) Blood Urea Nitrogen 33 mg/dl (9-21) Creatinine 1.00 mg/dl (0.66-1.25) Glomerular Filtration Rate Calc > 60.0 Random Glucose 104 mg/dl (75-110) Calcium Level 9.3 mg/dl (8.4-10.2) Total Bilirubin 1.1 mg/dl (0.2-1.3) Aspartate Amino Transf (AST/SGOT) 58 U/L (0-35) Alanine Aminotransferase (ALT/SGPT) 148 U/L (0-56) Alkaline Phosphatase 192 U/L (0-126) Total Protein 8.5 g/dl (6.3-8.2) Albumin 4.3 g/dl (3.5-5.0) Chemistry Test 07/10/18 19:20 07/10/18 19:30 Urine Color Myriam Urine Clarity Slightly-cloudy Urine pH 5.0 pH (4.8-9.5) Urine Specific [place] 1.031 Urine Protein 30 mg/dL (NEGATIVE) Urine Glucose (UA) Negative mg/dL (NEGATIVE) Urine Ketones Trace mg/dL (NEGATIVE) Urine Blood Negative (NEGATIVE) Urine Nitrite Negative (NEGATIVE) Urine Bilirubin Negative (NEGATIVE) Urine Urobilinogen 2.0 mg/dL (0.2-1.9) Urine Leukocyte Esterase Negative (NEGATIVE) Urine RBC 37 /HPF (0-2/HPF) Urine WBC 6 /HPF (0-5/HPF) Urine Squamous Epithelial Cells Few /LPF (NONE-FEW) Urine Bacteria Few /HPF (NONE-FEW) Urine Mucus Few /HPF (NONE-FEW) White Blood Count 10.0 k/uL (4.5-11.0) Red Blood Count 6.02 M/uL (4.00-5.60) Hemoglobin 18.4 g/dL (14.0-18.0) Hematocrit 54.0 % (42.0-52.0) Mean Corpuscular Volume 89.8 fL (80.0-96.0) Mean Corpuscular Hemoglobin 30.6 pg (26.0-33.0) Mean Corpuscular Hemoglobin Concent 34.0 g/dL (32.0-36.0) Red Cell Distribution Width 14.3 % (11.5-14.5) Platelet Count 93 K/uL (150-450) Mean Platelet Volume 13.2 fL (7.2-11.1) Neutrophils (%) (Auto) 72.8 % (39.4-72.5) Lymphocytes (%) (Auto) 19.2 % (17.6-49.6) Monocytes (%) (Auto) 7.2 % (4.1-12.4) Eosinophils (%) (Auto) 0.6 % (0.4-6.7) Basophils (%) (Auto) 0.2 % (0.3-1.4) Nucleated RBC Relative Count (auto) 0.1 /100WBC Neutrophils # (Auto) 7.3 K/uL (2.0-7.4) Lymphocytes # (Auto) 1.9 K/uL (1.3-3.6) Monocytes # (Auto) 0.7 K/uL (0.3-1.0) Eosinophils # (Auto) 0.1 K/uL (0.0-0.5) Basophils # (Auto) 0.0 K/uL (0.0-0.1) Nucleated RBC Absolute Count (auto) 0.01 K/uL Peripheral Blood Smear Yes Y/N Glomerular Filtration Rate Calc > 60.0 Calcium Level 9.3 mg/dl (8.4-10.2) Total Bilirubin 1.1 mg/dl (0.2-1.3) Aspartate Amino Transf (AST/SGOT) 58 U/L (0-35) Alanine Aminotransferase (ALT/SGPT) 148 U/L (0-56) Alkaline Phosphatase 192 U/L (0-126) Total Protein 8.5 g/dl (6.3-8.2) Albumin 4.3 g/dl (3.5-5.0) Urinalysis Test 07/10/18 19:20 Urine Color Myriam Urine Clarity Slightly-cloudy Urine pH 5.0 pH (4.8-9.5) Urine Specific [place] 1.031 Urine Protein 30 mg/dL (NEGATIVE) Urine Glucose (UA) Negative mg/dL (NEGATIVE) Urine Ketones Trace mg/dL (NEGATIVE) Urine Blood Negative (NEGATIVE) Urine Nitrite Negative (NEGATIVE) Urine Bilirubin Negative (NEGATIVE) Urine Urobilinogen 2.0 mg/dL (0.2-1.9) Urine Leukocyte Esterase Negative (NEGATIVE) Urine RBC 37 /HPF (0-2/HPF) Urine WBC 6 /HPF (0-5/HPF) Urine Squamous Epithelial Cells Few /LPF (NONE-FEW) Urine Bacteria Few /HPF (NONE-FEW) Urine Mucus Few /HPF (NONE-FEW) EKG/Imaging Imaging PATIENT NAME: Todd Beltran : 2000 MR: [id number] V: [id number] EXAM DATE: ORDERING PHYSICIAN: FRED JUAREZ TECHNOLOGIST: Location: [facility] Patient: Todd Beltran : 2000 Visit/Account:[id number] Date of Sevice: 07/10/2018 EXAMINATION: CT abdomen and pelvis with contrast COMPARISON: CT 04/10/2018 HISTORY: Abdomen pain. Evaluate for obstruction. PROCEDURE: Multiplanar contrast enhanced CT of the abdomen and pelvis with 75 mL intravenous Isovue 370. One of the following dose optimization techniques was utilized in the performance of this exam: Automated exposure control; adjustment of the mA and/or kV according to the patient's size; or use of an iterative reconstruction technique. Specific details can be referenced in the facility's radiology CT exam operational policy. FINDINGS: Visualized thorax: Patchy consolidative density potentially in a tree-in-bud distribution within the visualized right middle and lower lobe has increased since 04/10/2018. Left lung base aeration has improved. Sternotomy. Liver: Negative. Gallbladder and biliary system: Negative Spleen: Negative. Pancreas: Negative. Adrenal glands: Negative. Kidneys and bladder: No renal mass or hydronephrosis. The urinary bladder is nearly completely empty; there is significant mass effect on the urinary bladder by the markedly distended rectum. Vessels: Within normal limits. Bowel and mesentery: Normally positioned gastrostomy tube. No gastric distention. No small bowel obstruction or definite evidence of small bowel inflammation. Appendix is unremarkable. Very large amount of stool throughout the colon and rectum. The rectum is markedly distended and there is mild rectal wall thickening and perirectal stranding. No pneumatosis or extra luminal gas or fluid collection is identified. Pelvic organs: Negative. Lymph nodes: No adenopathy. Free air/free fluid: None. Abdominal wall and osseous structures: No hernia. Sternotomy. No acute changes. IMPRESSION: 1. Very large amount of stool throughout the colon and rectum. Mild rectal wall inflammation is suggestive of a stercoral colitis. 2. Right lower lobe increased patchy consolidation is suggestive of an infectious bronchiolitis versus asymmetric aspiration pneumonitis. 3. Additional chronic/incidental findings as described above. Report Dictated By: Erik Jose MD at 07/10/2018 8:47 PM Report E-Signed By: Erik Jose MD at 07/10/2018 9:00 PM WSN:[email or web address] Location: [facility] Patient: Todd Beltran : 2000 Visit/Account:[id number] Date of Sevice: 07/10/2018 Examination: CHEST SINGLE AP Comparison: 04/10/[address] abdomen same day. History: Abdomen pain. Findings: Right lung extensive patchy consolidation in a tree-in-bud distribution. When compared to 04/10/2018, the right lung parenchymal density has significantly progressed in the interval but left lung aeration has improved. No pneumothorax or effusion. Cardiac and hilar contour size is within normal limits. Sternotomy wires are midline and intact. Large amount of stool in the visualized upper abdomen. IMPRESSION: 1. Right lung extensive patchy consolidation is most suggestive of an infectious bronchiolitis, less likely an asymmetric aspiration pneumonitis. 2. Large amount of stool in the visualized colon. Report Dictated By: Erik Jose MD at 07/10/2018 9:40 PM Report E-Signed By: Erik Jose MD at 07/10/2018 9:45 PM WSN:[email or web address] ED Course/Re-evaluation Clinical Indication for ER IV: Hydration, IV Access ED Course The patient was admitted to room. A very limited history for the current illness was obtained, I did not get a phone call or any other information from the [facility], a physical was obtained. Differential diagnoses were considered. An IV was started. A CBC, CMP, UA were collected. On examination the patient's abdomen was somewhat firm, hyperresonant with distant but active bowel sounds in all quadrants, I did CT the patient's abdomen, CT showing a very large amount of stool throughout the colon and rectum, mild rectal wall inflammation is suggestive of a stir choral colitis, right lower lobe increased patchy consolidation is suggestive of an infectious bronchiolitis versus asymmetric aspiration pneumonitis. CBC showing RBC 6.02, hemoglobin and hematocrit 18.4 and 54.0, platelets 93, sodium 151, potassium 3.3 chloride 111, CO2 32, BUN 33, AST 58, ALT 148 out phosphatase 192, based on the patient's historical data the chemistry is different today. The patient is likely under hydrated. 1 L normal saline given at 500 mils an hour. cath UA showing specific gravity 1.031, proteinuria trace ketones, with 37 urine red blood cells, likely traumatic catheterization, with squamous epithelial cells. I did review the case with Dr. Mino Prieto as noted below, she has accepted the patient into the hospitalist services for constipation, patient will be admitted to the medical floor. The concern was With the amount of stool burden in the colon and rectum we would not be able to fully evacuate the patient tonight, this will likely take a day or so to resolve. There is also a concern about aspiration pneumonitis versus infectious bronchiolitis. I am getting a single view chest x-ray at this time. 07/10/2018 9:36:15 pm I did speak with Dr. Mino Prieto the hospitalist [facility], we discussed the patient's case, we will admit the patient to the medical floor. 07/10/2018 9:45:32 pm the patient became nauseous, began retching very loudly, I did enter the room with the nurse, patient began to throw up, patient was assisted to a more erect position, suction was performed. Patient was cleaned, 4 mg IV Zofran were given. Decision to Disposition Date: Jul 10, 2018 Decision to Disposition Time: 21:36 Depart Departure Latest Vital Signs Vital Signs Date Time Temp Pulse Resp B/P (MAP) Pulse Ox O2 Delivery O2 Flow Rate FiO2 07/10/18 20:20 90 07/10/18 20:00 122/81 (95) 07/10/18 19:50 95 07/10/18 19:01 100.1 15 Nasal Cannula Impression: Primary Impression: Constipation Condition: Condition Unchanged Disposition: Admitted from ER Problem Qualifiers Primary Impression: Constipation Constipation type: other constipation type Qualified Codes: K59.09 - Other constipation FRED [id number] Jul 10, 2018 19:14
[2018-07-10] MEDS ORDERED: NS(*) 0.9% 1000 ML BAG 1,000 ML IV ONE (19:20)
[2018-07-10] MEDS ORDERED: IOPAMIDOL 76% 75 ML INFUS BTL 75 ML ONE (19:36)
[2018-07-10 19:57] LABS: PLATELET COUNT, AUTOMATED 93 K/uL (150-450)
--- NOTE | 2018-07-10 21:03 | RADIOLOGY IMAGING REPORT ---
FACILITY: [facility] PATIENT NAME: Todd Beltran : 2000 MR: [id number] V: [id number] EXAM DATE: ORDERING PHYSICIAN: FRED JUAREZ TECHNOLOGIST: [facility] Patient: Todd Beltran : 2000 Visit/Account:[id number] Date of Sevice: 07/10/2018 EXAMINATION: CT abdomen and pelvis with contrast COMPARISON: CT 04/10/2018 HISTORY: Abdomen pain. Evaluate for obstruction. PROCEDURE: Multiplanar contrast enhanced CT of the abdomen and pelvis with 75 mL intravenous Isovue 3 70. One of the following dose optimization techniques was utilized in the performance of this exam: A utomated exposure control; adjustment of the mA and/or kV according to the patient's size; or use of an iterative reconstruction technique. Specific details can be referenced in the facility's radiolo gy CT exam operational policy. FINDINGS: Visualized thorax: Patchy consolidative density potentially in a tree-in-bud distribution within the visualized right middle and lower lobe has increased since 04/10/2018. Left lung base aeration has im proved. Sternotomy. Liver: Negative. Gallbladder and biliary system: Negative Spleen: Negative. Pancreas: Negative. Adrenal glands: Negative. Kidneys and bladder: No renal mass or hydronephrosis. The urinary bladder is nearly completely empty ; there is significant mass effect on the urinary bladder by the markedly distended rectum. Vessels: Within normal limits. Bowel and mesentery: Normally positioned gastrostomy tube. No gastric distention. No small bowel ob struction or definite evidence of small bowel inflammation. Appendix is unremarkable. Very large am ount of stool throughout the colon and rectum. The rectum is markedly distended and there is mild re ctal wall thickening and perirectal stranding. No pneumatosis or extra luminal gas or fluid collecti on is identified. Pelvic organs: Negative. Lymph nodes: No adenopathy. Free air/free fluid: None. Abdominal wall and osseous structures: No hernia. Sternotomy. No acute changes. IMPRESSION: 1. Very large amount of stool throughout the colon and rectum. Mild rectal wall inflammation is sug gestive of a stercoral colitis. 2. Right lower lobe increased patchy consolidation is suggestive of an infectious bronchiolitis vers us asymmetric aspiration pneumonitis. 3. Additional chronic/incidental findings as described above. Report Dictated By: Erik Jose MD at 07/10/2018 8:47 PM Report E-Signed By: Erik Jose MD at 07/10/2018 9:00 PM WSN:[email or web address]
[2018-07-10] MEDS ORDERED: ONDANSETRON 4 MG/2 ML VIAL IVP ONE (21:45)
--- NOTE | 2018-07-10 21:49 | RADIOLOGY IMAGING REPORT ---
FACILITY: [facility] - [place], [place] PATIENT NAME: Todd Beltran : 2000 MR: [id number] V: [id number] EXAM DATE: ORDERING PHYSICIAN: FRED JUAREZ TECHNOLOGIST: Location: [facility] [place] Patient: Todd Beltran : 2000 Visit/Account:[id number] Date of Sevice: 07/10/2018 Examination: CHEST SINGLE AP Comparison: 04/10/[address] abdomen same day. History: Abdomen pain. Findings: Right lung extensive patchy consolidation in a tree-in-bud distribution. When compared to 04/10/2018, the right lung parenchymal density has significantly progressed in the interval but left l andrew aeration has improved. No pneumothorax or effusion. Cardiac and hilar contour size is within no rmal limits. Sternotomy wires are midline and intact. Large amount of stool in the visualized upper abdomen. IMPRESSION: 1. Right lung extensive patchy consolidation is most suggestive of an infectious bronchiolitis, less likely an asymmetric aspiration pneumonitis. 2. Large amount of stool in the visualized colon. Report Dictated By: Erik Jose MD at 07/10/2018 9:40 PM Report E-Signed By: Erik Jose MD at 07/10/2018 9:45 PM WSN:[email or web address]
[2018-07-10 23:10] VITALS: BP 112/70
[2018-07-10] MEDS ORDERED: INFLUENZA VIRUS VAC 0.5ML SYR IM ONLY ONE (23:25)
[2018-07-10] MEDS: NS(*) 0.9% 1000 ML BAG 1,000 ML IV PRN (23:38)
[2018-07-10] MEDS ORDERED: KCL (*) 20 MEQ/100 ML PREMIX 100 ML IV ONE (23:50)
[2018-07-10] MEDS ORDERED: METO10I PO (23:50)
--- NOTE | 2018-07-10 23:50 | History & Physical ---
History of Present Illness Chief Complaint Concern for bowel obstruction by [facility] staff History of Present Illness The patient is a 18 year old male with PMH significant for traumatic brain injury and quadriplegia who was sent to the ER for evaluation by [facility]. Apparently, there was concern about a possible bowel obstruction. No other information was given and the patient is noncommunicative. In the ER, evaluation revealed a slightly distended abdomen and on CT of the abdomen the patient was noted to have a large amount of stool. The patient has chronic issues with constipation. He was also noted to have a low grade fever in ER and on CT of the abdomen, the R lung base appeared abnormal. CXR then showed bronchiolitis versus aspiration pneumonia. The patient does have previous history of aspiration pneumonia. He has a chronic feeding tube in place and does not take orals. Urinalysis showed 6 WBCs and some RBCs, but was otherwise unremarkable. The patient was recommended for admission for evaluation and treatment of his constipation and pneumonia. History Problems: (1) History of aspiration pneumonia Status: Resolved (2) Quadriplegia Status: Chronic (3) Traumatic brain injury Status: Chronic (4) Elevated liver enzymes Status: Chronic (5) Constipation Status: Chronic (6) Enterococcus UTI Status: Resolved Home Meds Reported Medications Metoclopramide Hcl (METOCLOPRAMIDE HCL) 5 Mg/5 Ml Solution, 5 MG FT Q6H PRN for NAUSEA/VOMITING 04/12/18 Levetiracetam (LEVETIRACETAM) 500 Mg/5 Ml Solution, 5 ML PO Q12H, ML 04/12/18 Ondansetron (ZOFRAN ODT) 4 Mg Tab.rapdis, 4 MG PO Q8H PRN for NAUSEA, TAB.JAIDA 03/12/18 Baclofen (BACLOFEN) 20 Mg Tablet, 20 MG FT Q6H, #15 TAB 03/11/18 Polyethylene Glycol 3350 (MIRALAX) 17 Gm Powd.pack, 17 GM FT DAILY, PKT 03/11/18 Bisacodyl (BISACODYL) 10 Mg Supp.rect, 10 MG RC PRN, SUPP.RECT 03/11/18 Sertraline Hcl (SERTRALINE HCL) 25 Mg Tablet, 1 TAB FT QDAY, TAB 02/08/18 Potassium Chloride (POTASSIUM CHLORIDE) 20 Meq Packet, 20 MEQ FT QDAY, PACKET 02/08/18 Oxycodone/Acetaminophen (OXYCODONE/ACETAMINOPHEN 5MG/325 MG) 5 Mg/325 Mg Tab, 1 TAB FT HS 02/08/18 Eyelid Cleanser Combination #5 (OCUSOFT LID SCRUB) 1 Each Med..pad, 1 EACH TP BID 02/08/18 Hyoscyamine Sulfate (LEVSIN) 0.125 Mg Tablet, 0.125 MG FT BID 02/08/18 Clonazepam (KLONOPIN) 1 Mg Tablet, 1 MG FT BID, #7 TAB 02/08/18 Glycopyrrolate (GLYCOPYRROLATE) 2 Mg Tablet, 2 MG FT TID 02/08/18 Discontinued Scripts Amoxicillin/Potassium Clav (AMOX TR-K CLV 875-125 MG TAB) 1 Each Tablet, 875 MG PO BIDBS, #8 TAB Prov:CLAU CAVAZOS APPOINTMENT SETTER 04/13/18 Allergies: Coded Allergies: No Known Drug Allergies (Unverified , 02/18/18) Other Social/Family Hx The patient resides at [facility]. Other social and family history is not able to be obtained. Hx Smoking: No (Pt nonverbal) Hx Alcohol Use: No Hx Substance Use Disorder: No History of IV Drug Use: No Review of Systems Constitutional: Fever Neurological: Other (Quadraplegia.) Gastrointestinal: Constipation Other Unable to obtain complete ROS as patient is noncommunicative. Exam Vital Signs Vital Signs Date Time Temp Pulse Resp B/P (MAP) Pulse Ox O2 Delivery O2 Flow Rate FiO2 07/10/18 21:30 117/73 (88) 07/10/18 21:25 93 96 07/10/18 19:01 100.1 15 Nasal Cannula General Appearance: Alert, Awake, Other (Appears intermittently uncomfortable.) Neuro: Other (Noncommunicative, quadraplegic) Eyes: Other (Both conjunctiva injected with purulent drainage visible in lashes R>L.) ENT: Other (Mucous membranes somewhat dry.) Cardiovascular: Regular Rate and Rhythm Respiratory: No Respiratory Distress GI: Other (Abdomen slightly distended with positive BS. ) Extremities: Warm, Perfused, Other (No edema. Contractures of both LE and fingers bilaterally.) Integumentary: Other (Scattered pustules over face, chest and back. ) Psych: Other (Noncommunicative.) Medical Decision Making Data Points Result Diagram: 07/10/18 1930 07/10/181929 Item Value Date Time Urine Color Myriam 07/10/181919 Urine Clarity Slightly-cloudy 07/10/181919 Urine pH 5.0 pH 07/10/181919 Urine Specific [place] 1.031 07/10/181919 Urine Protein 30 mg/dL 07/10/181919 Urine Glucose (UA) Negative mg/dL 07/10/181919 Urine Ketones Trace mg/dL 07/10/181919 Urine Blood Negative 07/10/181919 Urine Nitrite Negative 07/10/181919 Urine Bilirubin Negative 07/10/181919 Urine Urobilinogen 2.0 mg/dL 07/10/181919 Urine Leukocyte Esterase Negative 07/10/181919 Urine RBC 37 /HPF 07/10/181919 Urine WBC 6 /HPF 07/10/181919 Urine Squamous Epithelial Cells Few /LPF 07/10/181919 Urine Bacteria Few /HPF 07/10/181919 Urine Mucus Few /HPF 07/10/181919 Calcium Level 9.3 mg/dl 07/10/181929 Total Bilirubin 1.1 mg/dl 07/10/181929 Aspartate Amino Transf (AST/SGOT) 58 U/L H 07/10/181929 Alanine Aminotransferase (ALT/SGPT) 148 U/L H 07/10/181929 Alkaline Phosphatase 192 U/L H 07/10/181929 Total Protein 8.5 g/dl H 07/10/181929 Albumin 4.3 g/dl 07/10/181929 Blood and urine cultures pending. Pre-Admit Course Medical Record Review: Yes Assessment and Plan Problems: (1) Aspiration pneumonia Status: Acute Assessment & Plan: Will start Unasyn 3g IV q 6hrs. Will hydrate with NS. Adjust O2 as needed to keep sats 90% or greater. (2) Constipation Status: Chronic Assessment & Plan: The patient had a large BM in ER prior to transfer to the medical floor. Monitor overnight and consider further treatment in am if needed. (3) Elevated liver enzymes Status: Chronic Assessment & Plan: The patient has had elevated LFTs intermittently when reviewing the EMR. Etiology unclear. Will hydrate and repeat CMP in am. (4) Traumatic brain injury Status: Chronic Assessment & Plan: Stable. (5) Quadriplegia Status: Chronic Assessment & Plan: Stable. (6) Hypokalemia Status: Acute Assessment & Plan: K rider ordered. Repeat CMP in am. (7) Hypernatremia Status: Acute Assessment & Plan: Likely due to dehydration. Will gently hydrate and recheck CMP in am. (8) Conjunctivitis Status: Acute Assessment & Plan: Will order Tobramycin ophth gtts. Time Spent on Plan of Care: < 30 min Venous Thromboembolism Antithrombotics Is Pt On Any Antithrombotics?: No Exam Sepsis Risk: No Definite Risk Problem Qualifiers (1) Constipation: Constipation type: other constipation type Qualified Codes: K59.09 - Other constipation GERSON CASTILLO MD Jul 10, 2018 23:50
[2018-07-10] MEDS ORDERED: METOCLOPRAMIDE 10 MG/2 ML SDV IVP PRN (23:55)
[2018-07-11] MEDS ORDERED: BISACODYL 10 MG SUPP PR PRN
[2018-07-11] MEDS ORDERED: AMPICILLIN/SULBACTAM 3 GM VIAL ONE (00:04)
[2018-07-11] MEDS: AMPICILLIN/SULBACT (*) 3 GM VL 3 GM in NS(*) 0.9% 100 ML BAG 100 ML IVPB SCH ×4 (00:35→17:50)
[2018-07-11] MEDS: levETIRAcetam(*)500 MG/5 ML VI 500 MG in NS(*) 0.9% 100 ML BAG 100 ML IV SCH ×3 (01:46→21:36)
[2018-07-11] MEDS: BACLOFEN 10 MG TAB FT SCH ×5 (01:53→18:13)
[2018-07-11] MEDS: TOBRAMYCIN 0.3% OP SOLN 5 ML OU SCH ×6 (02:35→21:37)
[2018-07-11 03:44] VITALS: BP 100/65
[2018-07-11 07:04] LABS: PLATELET COUNT, AUTOMATED 80 K/uL (150-450)
--- NOTE | 2018-07-11 08:22 | Miscellaneous Provider Note ---
Miscellaneous Provider Note Note Clogged PEG tube swapped for new 20F balloon tip PEG tube without problems. Pt tolerated the procedure without issues. NITHIN ABARCA MD Jul 11, 2018 08:22
[2018-07-11 08:59] VITALS: BP 106/59
[2018-07-11] MEDS: SERTRALINE HCL 50 MG TAB FT SCH (09:01)
[2018-07-11] MEDS: POTASSIUM CHL PWDR 20 MEQ PKT FT SCH (09:01)
[2018-07-11] MEDS: POLYETHYLENE GLYCOL 17 GM PKT FT SCH (09:01)
[2018-07-11] MEDS: clonazePAM 1 MG TAB FT SCH ×2 (09:01→21:37)
--- NOTE | 2018-07-11 10:47 | Hospitalist Progress Note ---
Subjective Progress Notes Subjective No emesis. BM in ER, but none since admission. PEG tube plugged. He does get agitated with tactile stimulation. Physical Exam Vital Signs Date Time Temp Pulse Resp B/P (MAP) Pulse Ox O2 Delivery O2 Flow Rate FiO2 07/11/18 08:59 98.5 81 16 106/59 (75) 97 Oxy Mask 1.0 Intake and Output 07/11/18 07:00 Intake Total 805 ml Balance 805 ml Intake IV Total 805 ml # Bowel Movements 1 General Appearance: Other (he does awaken with tactile stimuli/some agitation at times) Neuro: Other (chronic spastic quadriparesis) ENT: Oropharynx Clear Neck: No Masses Cardiovascular: Regular Rate and Rhythm Respiratory: Other (scattered rhonchi/coarse upper airway sounds) Chest: No Tenderness GI: Other (increased tone in abdominal musculature/PEG site looks good - but tube appears to have tube feeding in entire length) Extremities: Warm, Perfused Result Diagram: 07/11/1856 07/11/18655 Assessment and Plan Problems: (1) Aspiration pneumonia Status: Acute Assessment & Plan: Chronic/recurrent. Currently on Unasyn 3g IV q 6hrs. Will continue supplemental O2 as needed to keep saturations 90% or greater. (2) Constipation Status: Chronic Assessment & Plan: The patient had a large BM in ER prior to transfer to the medical floor. Will resume tube feedings and continue bowel regimen (modify if needed). (3) Elevated liver enzymes Status: Chronic Assessment & Plan: Slight improvements today. The patient has had elevated LFTs intermittently when reviewing the EMR. Etiology unclear. Will monitor. (4) Traumatic brain injury Status: Chronic Assessment & Plan: Stable. (5) Quadriplegia Status: Chronic Assessment & Plan: Stable. (6) Hypokalemia Status: Acute Assessment & Plan: Resolved with IV supplementation. Watch lab. (7) Hypernatremia Status: Acute Assessment & Plan: Likely due to dehydration. Will continue gentle fluids IV and via PEG tube. Watch lab. (8) Conjunctivitis Status: Acute Assessment & Plan: On Tobramycin ophthalmic drops. Exam Sepsis Risk: No Definite Risk Problem Qualifiers (1) Constipation: Constipation type: other constipation type Qualified Codes: K59.09 - Other constipation ELYSE CASTILLO MD Jul 11, 2018 10:47
[2018-07-11] MEDS: NS(*) 0.9% 1000 ML BAG 1,000 ML IV PRN (15:01)
[2018-07-11 16:12] VITALS: BP 111/61
--- NOTE | 2018-07-11 16:39 | Medical Nutrition Therapy ---
Nutrition Anthropometrics Weight (Pounds): 127 Weight (Calculated Kilograms): 57.606 Joey Nutrition Score: Probably Inadequate Joey Nutrition Risk Score: 11 Dietary Referral Nutrition Risk Factors: Diff. Swallowing, Tube Feeding Nutrition Risk Comment: tube feeding Physical Findings Physical Appearance: Not able to calculate BMI Skin Appearance Skin Appearance: Edema Edema Location Modifier: Edema Location: Type of Edema: Degree of Edema: Gastrointestinal Symptoms GI Symtoms: Tube Present: PEG Bowel Sounds: Recent Bowel Pattern: Constipated Stool Characteristics: Nutrition/Food History Tube Feed Prior to Admit Nutritional Diagnosis Nutritional Risk Acuity 2: Tube Feed Stable Past Medical History: Hx of quadriplegia and traumatic brain injury. Nutrition Diagnosis: Increased Nutrient Needs Nutrition Etiology: Physiological Causes Nutrition Problem/Etiology/Sym: Increased Nutrient Needs related to physiological causes increasing nutrient needs, e.g., aspiration pneumonia AEB low albumin status of 3.4. Energy Requirement: 2020 (Kg X 35 Kcal) Protein Requirement: 70 (kg X 1.2) Fluid Requirement: 2020 Diet Type: Tube Feeding (TF) Nutrition Intervention: Cont diet as ordered Nutritional Support Current Enteral / Parental: Tube Feeding Tube Feeding Formulas: Osmolite 1.5cal/ml-Hi Bryant Tube Feeding Supplement Streng: Full Feeding Route: PEG Rate: 60mL/hr Current Duration: 24 Current Calories: 2160 Current Protein: 90 Total Current Calories: 2160 Nutrition Monitoring & Eval RD Patient Assessment Time: [address] Assessment Type: RD Assessment Patient Nutrition Acuity: 2-Moderate Follow Up Date: Jul 14, 2018 Nutritional Comment: 07/11/18 [facility] pt admitted for aspiration pneumonia and constipation. Pt is a 18-year-old traumatic brain injury quadriplegic, on PEG tube feeding at [facility]. Alb 3.4, High AST/ALT/Alk Phos. Not able to assess BMI d/t no available height. Receiving Osmolite 1.5 at 60mL/hr. This provides 2160 Kcals, 1097mL free water and 90 grams of protein per 24 hours. Tube feeding meeting 107% of estimated Kcal needs and 128% of estimated protein needs. Follow labs, TF, etc. -SLOAN KATHLEEN Jul 11, 2018 16:39
[2018-07-11 19:16] VITALS: BP 103/58
[2018-07-11 23:28] VITALS: BP 101/58
[2018-07-12] MEDS: BACLOFEN 10 MG TAB FT SCH ×2 (00:25→05:19)
[2018-07-12] MEDS: AMPICILLIN/SULBACT (*) 3 GM VL 3 GM in NS(*) 0.9% 100 ML BAG 100 ML IVPB SCH ×2 (00:25→05:19)
[2018-07-12] MEDS: TOBRAMYCIN 0.3% OP SOLN 5 ML OU SCH ×3 (01:19→09:08)
[2018-07-12] MEDS: NS(*) 0.9% 1000 ML BAG 1,000 ML IV PRN (02:28)
[2018-07-12 03:32] VITALS: BP 103/62
[2018-07-12 06:05] LABS: PLATELET COUNT, AUTOMATED 71 K/uL (150-450)
[2018-07-12 07:29] VITALS: BP 102/52
[2018-07-12] MEDS ORDERED: AMOX-559 FT (08:50)
--- NOTE | 2018-07-12 08:55 | Hospitalist Depart ---
Discharge Summary Reason for Hosp/Final Diag: (1) Aspiration pneumonia Status: Acute Hospital Course & Plan: He does have chronic aspiration, and his chest x-ray looks similar to prior studies. However, he did have a low grade fever. We started him on Unasyn, and have now converted him to oral Augmentin. (2) Constipation Status: Chronic Hospital Course & Plan: He did have good results with a Dulcolax suppository. (3) Elevated liver enzymes Status: Chronic Hospital Course & Plan: This has been a chronic issue. (4) Traumatic brain injury Status: Chronic Hospital Course & Plan: Stable. (5) Quadriplegia Status: Chronic Hospital Course & Plan: Stable. (6) Hypokalemia Status: Acute Hospital Course & Plan: Resolved with IV supplementation. (7) Hypernatremia Status: Acute Hospital Course & Plan: Likely due to dehydration. Free water has been administered through his PEG tube. (8) Conjunctivitis Status: Acute Hospital Course & Plan: On Tobramycin ophthalmic drops. Departure Latest Vital Signs Vital Signs 07/12/18 07:29 Temp 98.5 Pulse 79 Resp 16 B/P (MAP) 102/52 (69) Pulse Ox 95 O2 Delivery Oxy Mask O2 Flow Rate 1.0 Weight (Pounds): 127 Weight (Ounces): 8.0 Result Diagram: 07/12/1843 07/12/18542 Condition: Improved Discharge: Home, Self Care Discharge Code Status: DNR, DNI Discharge Instructions Home Meds Active Scripts Amoxicillin/Pot Clav 875-125 Mg Tab (AUGMENTIN 875-125 TABLET) 1 Each Tablet, 1 TAB FT Q12H, #10 TAB Prov:NITHIN LEMUS DO 07/12/18 Reported Medications Metoclopramide Hcl 10 Mg Vial (REGLAN 10 MG VIAL) 10 Mg/2 Ml Injs, 5 MG PO TID PRN for NAUSEA/PAIN, VIAL 07/10/18 Levetiracetam (LEVETIRACETAM) 500 Mg/5 Ml Solution, 5 ML PO Q12H, ML 04/12/18 Ondansetron (ZOFRAN ODT) 4 Mg Tab.rapdis, 4 MG PO Q8H PRN for NAUSEA, TAB.JAIDA 03/12/18 Baclofen (BACLOFEN) 20 Mg Tablet, 20 MG FT Q6H, #15 TAB 03/11/18 Polyethylene Glycol 3350 (MIRALAX) 17 Gm Powd.pack, 17 GM FT DAILY, PKT 03/11/18 Bisacodyl (BISACODYL) 10 Mg Supp.rect, 10 MG RC PRN, SUPP.RECT 03/11/18 Sertraline Hcl (SERTRALINE HCL) 25 Mg Tablet, 1 TAB FT QDAY, TAB 02/08/18 Potassium Chloride (POTASSIUM CHLORIDE) 20 Meq Packet, 20 MEQ FT QDAY, PACKET 02/08/18 Oxycodone/Acetaminophen (OXYCODONE/ACETAMINOPHEN 5MG/325 MG) 5 Mg/325 Mg Tab, 1 TAB FT HS 02/08/18 Clonazepam (KLONOPIN) 1 Mg Tablet, 1 MG FT BID, #7 TAB 02/08/18 Glycopyrrolate (GLYCOPYRROLATE) 2 Mg Tablet, 2 MG FT TID 02/08/18 Discontinued Reported Medications Metoclopramide Hcl (METOCLOPRAMIDE HCL) 5 Mg/5 Ml Solution, 5 MG FT Q6H PRN for NAUSEA/VOMITING 04/12/18 Eyelid Cleanser Combination #5 (OCUSOFT LID SCRUB) 1 Each Med..pad, 1 EACH TP BID 02/08/18 Hyoscyamine Sulfate (LEVSIN) 0.125 Mg Tablet, 0.125 MG FT BID 02/08/18 Discontinued Scripts Amoxicillin/Potassium Clav (AMOX TR-K CLV 875-125 MG TAB) 1 Each Tablet, 875 MG PO BIDBS, #8 TAB Prov:CLAU CAVAZOS Bradley PROJECT ADMINISTRATOR 04/13/18 Activity: As Tolerated Special Instructions: Tube feeds Venous Thromboembolism Antithrombotics Is Pt On Any Antithrombotics?: No Problem Qualifiers (1) Constipation: Constipation type: other constipation type Qualified Codes: K59.09 - Other constipation NITHIN LEMUS DO Jul 12, 2018 08:55
[2018-07-12] MEDS: levETIRAcetam(*)500 MG/5 ML VI 500 MG in NS(*) 0.9% 100 ML BAG 100 ML IV SCH (09:06)
[2018-07-12] MEDS: clonazePAM 1 MG TAB FT SCH (09:08)
[2018-07-12] MEDS: SERTRALINE HCL 50 MG TAB FT SCH (09:08)
[2018-07-12] MEDS: POTASSIUM CHL PWDR 20 MEQ PKT FT SCH (09:08)
[2018-07-12] MEDS: POLYETHYLENE GLYCOL 17 GM PKT FT SCH (09:09)
[2018-07-12 10:30] VITALS: BP 114/64
== END 2018-07-12 10:36 | DRG 177 ==
LOC: ER 19:00 → MED 22:07
PROVIDERS: ADMIT Internal Medicine; ATTEND Internal Medicine
PROC: 0D20XUZ Change Feeding Device in Upper Intestinal Tract, External Approach (ICD-10-PCS; principal; 2018-07-11)
DX: J69.0 Pneumonitis due to inhalation of food and vomit (principal); G82.50 Quadriplegia, unspecified; E87.0 Hyperosmolality and hypernatremia; K59.09 Other constipation; E87.6 Hypokalemia; E86.0 Dehydration; H10.9 Unspecified conjunctivitis; Z87.820 Personal history of traumatic brain injury; Z86.73 Personal history of transient ischemic attack (TIA), and cerebral infarction without residual deficits; Z93.1 Gastrostomy status
CPT/HCPCS: 36415; 43760; 71045; 74177; 81001; 82040; 82247; 82310; 82374; 82435; 82565; 82947; 84075; 84132; 84155; 84295; 84450; 84460; 84520; 85025; 87040; 87077; 87088; 87186; 96361; 96374; 99285; J0295; J1953; J2405; J3480; J7030; J7050; Q9967

== ENCOUNTER → 2018-07-10 | Outpatient (CLI) | payer MEDICAID ==
[~2018-07-10] MED LIST changes: +METO10I PO
== END ==
LOC: AMB 18:34
PROVIDERS: ATTEND Nurse Practitioner
DX: R11.2 Nausea with vomiting, unspecified (principal); Z87.820 Personal history of traumatic brain injury
CPT/HCPCS: A0425; A0429

== ENCOUNTER → 2018-07-12 | Outpatient (CLI) | payer MEDICAID ==
[~2018-07-12] MED LIST changes: +METO10I PO
== END ==
LOC: AMB 10:20
PROVIDERS: ATTEND Nurse Practitioner
DX: Z76.89 Persons encountering health services in other specified circumstances (principal)
CPT/HCPCS: A0425; A0428

== ENCOUNTER 2018-07-15 07:38 | Emergency (ER) | payer MEDICAID ==
[2018-07-15] MEDS ORDERED: NS(*) 0.9% 1000 ML BAG 1,000 ML IV ONE (07:46)
[2018-07-15] MEDS ORDERED: ONDANSETRON 4 MG/2 ML VIAL IVP ONE (07:50)
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
[2018-07-15 08:05] LABS: PLATELET COUNT, AUTOMATED 84 K/uL (150-450)
[2018-07-15] MEDS ORDERED: IOPAMIDOL 76% 75 ML INFUS BTL 75 ML ONE (08:17)
--- NOTE | 2018-07-15 08:43 | RADIOLOGY IMAGING REPORT ---
FACILITY: [facility] [place] PATIENT NAME: Todd Beltran : 2000 MR: [id number] V: [id number] EXAM DATE: ORDERING PHYSICIAN: SHAUNA JOE TECHNOLOGIST: Location: [facility] [place] Patient: Todd Beltran : 2000 Visit/Account:[id number] Date of Sevice: 07/15/2018 CHEST SINGLE AP Indication: Post NG tube placement. Comparison: July 02, 2018 Findings: Interval placement of a nasogastric tube which is seen extending through the esophagus and looping wi thin the proximal stomach. Surgical clips noted along the left mediastinum. Unremarkable appearance of median sternotomy wires. Heart size within normal limits. Subtle persistent haziness of the right lung, decreased since prior exam. Left lung is unremarkable. No pneumothorax or pleural effusion. IMPRESSION: 1. NG tube terminating within the stomach. 2. Subtle persistent haziness of the right lung, decreased since prior exam. Report Dictated By: Florentino No MD at 07/15/2018 8:37 AM Report E-Signed By: Florentino No MD at 07/15/2018 8:39 AM WSN:[email or web address]
[2018-07-15 10:00] VITALS: BP 94/77
--- NOTE | 2018-07-15 10:25 | RADIOLOGY IMAGING REPORT ---
FACILITY: [facility] PATIENT NAME: Todd Beltran : 2000 MR: [id number] V: [id number] EXAM DATE: ORDERING PHYSICIAN: SHAUNA JOE TECHNOLOGIST: Location: [facility] - [place], [place] Patient: Todd Beltran : 2000 Visit/Account:[id number] Date of Sevice: 07/15/2018 ABDOMEN/PELVIS WITH CONTRAST HISTORY: gi bleed TECHNIQUE: Axial images were obtained through the abdomen and pelvis with intravenous contrast . One of the following dose optimization techniques was utilized in the performance of this exam: automate d exposure control; adjustment of the mA and/or kv according to patient size; or use of iterative rec onstruction technique. Specific details can be referenced in the facility's radiology CT exam operati onal policy. CONTRAST: 75 mL of Isovue-370 COMPARISON: CT abdomen/pelvis 07/10/2018 FINDINGS: Visualized lung bases: Improving opacities within the right lower lobe and base of the right middle lobe Hepatobiliary: Negative. Spleen: Negative. Adrenals: Negative. Pancreas: Negative. Kidneys/ureters/bladder: Negative. Bowel/peritoneum/mesentery: Reidentified is a large amount of stool especially within the rectum wit h stable mild edema within the rectal wall. The large amount of rectal stool displaces the urinary b ladder to the left which contains a Momin catheter. Moderate stool throughout the remainder the colo n. No evidence of small bowel obstruction. No free air or ascites. Percutaneous gastrostomy tube a nd nasogastric tube noted. Vessels: Negative. Lymph nodes: Negative. Pelvic genitourinary: Negative. Bones/body wall: Negative. Other findings: None significant IMPRESSION: 1. Reidentified is a large amount of colonic stool especially within the rectum with mild edema with in the rectal wall raising concern for stercoral colitis. 2. No small bowel obstruction or free air. 3. Nasogastric tube and percutaneous gastrostomy tube noted. 4. Decreasing airspace disease within the right middle lobe and right lower lobe. Results were called to SHAUNA JOE at 07/15/2018 9:14 AM. Report Dictated By: Matthew Yarbrough MD at 07/15/2018 9:03 AM Report E-Signed By: Matthew Yarbrouhg MD at 07/15/2018 9:14 AM WSN:[id number]
== END 2018-07-15 10:15 | disposition home or self-care (01) ==
LOC: ER 07:47
DX: K59.00 Constipation, unspecified (principal); G82.50 Quadriplegia, unspecified
CPT/HCPCS: 36415; 71045; 74177; 81001; 82271; 83690; 83986; 85025; 85610; 85730; 86850; 86900; 86901; 96361; 96374; 99284; J2405; J7030; Q9967; 82040; 82247; 82310; 82374; 82435; 82565; 82947; 84075; 84132; 84155; 84295; 84450; 84460; 84520

== ENCOUNTER → 2018-07-15 | Outpatient (CLI) | payer MEDICAID | LOC: AMB 07:14 | PROVIDERS: ATTEND Nurse Practitioner | DX: K92.0 Hematemesis (principal); Z87.820 Personal history of traumatic brain injury; G82.50 Quadriplegia, unspecified | CPT/HCPCS: A0425; A0429 ==

== ENCOUNTER → 2018-07-15 | Outpatient (CLI) | payer MEDICAID | LOC: AMB 10:17 | PROVIDERS: ATTEND Nurse Practitioner | DX: G82.50 Quadriplegia, unspecified (principal) | CPT/HCPCS: A0425; A0428 ==